=== PATIENT | female | born 1990 | race Caucasian/White ===

== ENCOUNTER 2017-11-14 12:22 | Emergency (ER) | payer OTHER ==
[~2017-11-14] VITALS: Ht 162.6 cm; Wt 89.4 kg
[~2017-11-14 12:22] MED LIST: ALBUTEROL SULF8.5 GM INH; ALBUTEROL2.5 MG/3 M INH; AZITHROMYCIN250 MG PO; BACLOFEN10 MG PO; BENTYL20 MG PO; BENZONATATE100 MG PO; BLEPHAMIDE EYE D5 ML OD; BUTALB-ACETAMI1 EAC2 PO; CEPHALEXIN500 MG PO; CIPROFLOXACIN250 MG PO; CLINDAMYCIN HC300 MG PO; DOXYCYCLINE HY100 MG PO; ESCITALOPRAM OX10 MG PO; FIORICET 50-301 EACH PO; FLEXERIL10 MG PO; FLEXERIL5 MG PO; FLONASE2 SPRAY; HYDROCODON-ACE1 EAC8 PO; HYDROCODONE-CH473 ML PO; IBUPROFEN800 MG PO; KEFLEX500 MG PO; KETOPROFEN50 MG PO; LEXAPRO10 MG PO; LORCET 5-325 M1 EACH PO; MACRODANTIN100 MG PO; NAPROSYN500 MG PO; NEURONTIN100 MG PO; NORCO 10-325 T1 EACH PO; NORCO 5-325 TA1 EACH PO; OMEPRAZOLE20 MG PO; ONDANSETRON HCL4 MG PO; PERCOCET 5-3251 EACH PO; PREDNISONE20 MG PO; PROAIR HFA8.5 GM INH; PROMETHAZI6.25 MG/5 PO; PROMETHAZINE HC25 M1 PO; SULFACETAMIDE S15 ML OD; TRAMADOL HCL50 MG PO; WELLBUTRIN XL150 MG PO; WELLBUTRIN100 MG PO; ZITHROMAX250 MG PO; ZOFRAN ODT4 MG PO; ZOFRAN ODT8 MG PO; ZOFRAN4 MG PO
[2017-11-14] MEDS ORDERED: METHYLPREDNISOLO4 MG PO (12:39)
[2017-11-14] MEDS ORDERED: PANTOPRAZOLE SO40 MG PO (15:43)
[2017-11-14] MEDS ORDERED: ZOFRAN ODT4 MG PO (15:43)
== END 2017-11-14 15:56 | disposition home or self-care (01) ==
LOC: ED 12:22
DX: F45.8 Other somatoform disorders (principal); K21.9 Gastro-esophageal reflux disease without esophagitis; F17.200 Nicotine dependence, unspecified, uncomplicated; Z88.0 Allergy status to penicillin; Z88.5 Allergy status to narcotic agent; Z88.6 Allergy status to analgesic agent; Z79.899 Other long term (current) drug therapy
CPT/HCPCS: 70491; 80053; 83690; 85025; 96374; 96375; 99284; J2405; J7030; Q9967

== ENCOUNTER 2017-12-01 09:23 | Emergency (ER) | payer OTHER ==
[~2017-12-01] VITALS: Ht 162.6 cm; Wt 89.4 kg
[~2017-12-01 09:23] MED LIST changes: +METHYLPREDNISOLO4 MG PO; +PANTOPRAZOLE SO40 MG PO
== END 2017-12-01 09:40 | disposition home or self-care (01) ==
LOC: ED 09:23
DX: S61.512A Laceration without foreign body of left wrist, initial encounter (principal); W26.8XXA Contact with other sharp object(s), not elsewhere classified, initial encounter; Y99.0 Civilian activity done for income or pay

== ENCOUNTER 2019-04-16 11:13 | Emergency (ER) | payer OTHER ==
[~2019-04-16] VITALS: Ht 162.6 cm; Wt 90.7 kg
[~2019-04-16 11:13] MED LIST changes: +BUPROPION HCL150 M2 PO; +ULTRAM50 MG PO
[2019-04-16] MEDS ORDERED: NORCO 5-325 TA1 EACH PO (11:36)
[2019-04-16] MEDS ORDERED: ALBUTEROL2.5 MG/3 M INH (11:36)
[2019-04-16] MEDS ORDERED: IPRAT-ALBUT 0.5-3 ML INH (11:36)
== END 2019-04-16 13:46 | disposition home or self-care (01) ==
LOC: ED 11:13
DX: R10.31 Right lower quadrant pain (principal); R19.7 Diarrhea, unspecified; J45.909 Unspecified asthma, uncomplicated; F17.200 Nicotine dependence, unspecified, uncomplicated; Z88.0 Allergy status to penicillin; Z88.5 Allergy status to narcotic agent; Z88.6 Allergy status to analgesic agent
CPT/HCPCS: 74177; 80053; 81001; 84703; 85025; 99284-25; J2270; J2550; J7030; Q9967

== ENCOUNTER 2019-06-25 01:07 | Emergency (ER) | payer OTHER ==
[~2019-06-25] VITALS: Ht 162.6 cm; Wt 82.5 kg
--- OUTSIDE RECORDS SUMMARY | ~2019-06-25 | XMS | Clinical Summary ---
Demographics + + + | Address | [address] | | | [place] [address] | + + + | Home Phone | | + + + | Preferred Language | Unknown | + + + | Marital Status | | + + + | Scientology Affiliation | Unknown | + + + | Race | Unknown | + + + | Ethnic Group | Unknown | + + + Author + + + | Author | [facility] (Historical as of | | | 03-11-19) | + + + | Organization | [facility] (Historical as of | | | 03-11-19) | + + + | Address | Unknown | + + + | Phone | Unavailable | + + + Support + + +---------+ + | Name | Relationship | Address | Phone | + + +---------+ + | Voice,Mail | ECON | Unknown | | + + +---------+ + | Dea Zendejas | MAHESH | Unknown | | + + +---------+ + Care Team Providers + +------+ + | Care Boiler Tester Name | Role | Phone | + +------+ + | Dixon Morris | PP | | + +------+ + Allergies + + + + + + | Active Allergy | Reactions | Severity | Noted | Comments | | | | | Date | | + + + + + + | Amoxicillin | Hives | High | 07/12/20 | | | | | | 13 | | + + + + + + | Codeine | Tachycardia | Medium | 03/13/20 | | | | | | 18 | | + + + + + + | Ketorolac | Other (See Comments) | Medium | 03/13/20 | Pt states she | | | | | 18 | freaks out and wants | | | | | | to pull her hair | | | | | | out | + + + + + + Current Medications + + +-------+---------+------+------+-------+ | Prescription | Sig. | Disp. | Refills | Star | End | Statu | | | | | | t | Date | s | | | | | | Date | | | + + +-------+---------+------+------+-------+ | | Take 1 tablet by | | | | | Activ | | oxycodone-acetaminop | mouth every 8 | | | | | e | | hen (PERCOCET) | (eight) hours as | | | | | | | 10-325 MG per tablet | needed. | | | | | | + + +-------+---------+------+------+-------+ | cyclobenzaprine | Take 5 mg by mouth | | | | | Activ | | (FLEXERIL) 5 MG | as needed. | | | | | e | | tablet | | | | | | | + + +-------+---------+------+------+-------+ | promethazine | Take 25 mg by mouth | | | | | Activ | | (PHENERGAN) 25 MG | every 6 (six) hours | | | | | e | | tablet | as needed. | | | | | | + + +-------+---------+------+------+-------+ Active Problems Not on file Social History + + + +--------+------+ | Tobacco Use | Types | Packs/Day | Years | Date | | | | | Used | | + + + +--------+------+ | Current Every Day | Cigarettes | 0.8 | 5 | | | Smoker | | | | | + + + +--------+------+ + +------+---+---+ | Smokeless Tobacco: | Chew | | | | Current User | | | | + +------+---+---+ + + | Comments: once in awhile when i dont have cigarettes | + + + + +---------+ + | Alcohol Use | Drinks/We | oz/Week | Comments | | | ek | | | + + +---------+ + | No | | | every now and then | + + +---------+ + + + + | Sex Assigned at | Date Recorded | | | | + + + | Not on file | | + + + Last Filed Vital Signs + + + + | Vital Sign | Reading | Time Taken | + + + + | Blood Pressure | 108/62 | 03/13/2018 6:54 PM PDT | + + + + | Pulse | 93 | 03/13/2018 6:54 PM PDT | + + + + | Temperature | 37 C (98.6 F) | 03/13/2018 6:54 PM PDT | + + + + | Respiratory Rate | 16 | 03/13/2018 6:54 PM PDT | + + + + | Oxygen Saturation | 97% | 03/13/2018 6:54 PM PDT | + + + + | Inhaled Oxygen | - | - | | Concentration | | | + + + + | Weight | 84.7 kg (186 lb 11.2 | 03/13/2018 6:54 PM PDT | | | oz) | | + + + + | Height | 165.1 cm (5' 5") | 03/13/2018 6:54 PM PDT | + + + + | Body Mass Index | 31.07 | 03/13/2018 6:54 PM PDT | + + + + Plan of Treatment + + + + + | Health Maintenance | Due Date | Last Done | Comments | + + + + + | Vaccine: | | | | | Dtap/Tdap/Td (1 - | 0 | | | | Tdap) | | | | + + + + + | Vaccine: | | | | | Pneumococcal 19-64 | 0 | | | | (PPSV23 only) Medium | | | | | Risk (1 of 1 - | | | | | PPSV23) | | | | + + + + + | Cervical Cancer | | | | | Screening (Pap) | 2 | | | + + + + + | Vaccine: Influenza | | | | | (#1) | 9 | | | + + + + + Results Not on filefrom Last 3 Months Insurance + +--------+ +------+-------+ + | Payer | Benefi | Subscriber | Type | Phone | Address | | | t Plan | ID | | | | | | / | | | | | | | Group | | | | | + +--------+ +------+-------+ + | MEDICAID | [place] | [id number] | | | [address] | | | N | | | | [place] | | | [place] | | | | [address] | | | [employer] | | | | | + +--------+ +------+-------+ + + +--------+ +--------+ + + | Guarantor Name | Accoun | Relation to | Date | Phone | Billing Address | | | t Type | Patient | of | | | | | | | | | | + +--------+ +--------+ + + | YON WALTON | Person | Self [birth year] Home: | [address] | | | al/Fam | | 1990 | [phone] [place] [address] | | | wilda | | | [phone] | | + +--------+ +--------+ + +
--- OUTSIDE RECORDS SUMMARY | ~2019-06-25 | XMS | Encounter Summary ---
Demographics + + + | Address | [address] | | | [place] [address] | + + + | Home Phone | | + + + | Preferred Language | Unknown | + + + | Marital Status | | + + + | Mormonism Affiliation | Unknown | + + + | Race | Unknown | + + + | Ethnic Group | Unknown | + + + Author + + + | Author | [facility] | | | and [place] | + + + | Organization | [facility] | | | and [place] | [...] Team Providers + +------+ + | Care Laundry Agent Name | Role | Phone | + +------+ + PCP | Unavailable | + +------+ + Encounter Details +--------+ + + + + | Date | Type | Department | Care Team | Description | +--------+ + + + + | 07/06/ | Hospital | [facility] | Conversion | Headache | | 2012 | Encounter | CONVERSION [address] | Transaction, | | | | | [address] | Provider Unknown | | | | | [place] | | | | | | [address] | | | | | | [phone] | | | +--------+ + + + [...]
--- OUTSIDE RECORDS SUMMARY | ~2019-06-25 | XMS | Encounter Summary ---
Demographics + + + | Address | [address] | | | [place] [address] | + + + | Home Phone | | + + + | Preferred Language | Unknown | + + + | Marital Status | | + + + | Scientologist Affiliation | Unknown | + + + | Race | Unknown | + + + | Ethnic Group | Unknown | + + + Author + + + | Author | [facility] | | | and [place] | + + + | Organization | [facility] | | | and [place] [...] Team Providers + +------+ + | Care Flight Simulator Teacher Name | Role | Phone | + +------+ + PCP | Unavailable | + +------+ + Encounter Details +--------+ + + + + | Date | Type | Department | Care Team | Description | +--------+ + + + + | 07/06/ | Hospital | [facility] | Conversion | Headache | | 2012 | Encounter | CONVERSION [address] | Transaction, | | | | | [address] | Provider Unknown | | | | | [place] | | | | | | [address] | | | | | | [phone] | | | +--------+ + + + [...]
--- OUTSIDE RECORDS SUMMARY | ~2019-06-25 | XMS | Encounter Summary ---
Demographics + + + | Address | [address] | | | [place] [address] | + + + | Home Phone | | + + + | Preferred Language | Unknown | + + + | Marital Status | | + + + | Hoahaoism Affiliation | Unknown | + + + | Race | Unknown | + + + | Ethnic Group | Unknown | + + + Author + + + | Author | [facility] | | | and [place] | + + + | Organization | [facility] | | | and [place] [...] Team Providers + +------+ + | Care Face And Fill Packer Name | Role | Phone | + [...] Provider Unknown | | | | | [place], [place] | | | | | | [phone] | (Fax) | | | | | [...]
--- OUTSIDE RECORDS SUMMARY | ~2019-06-25 | XMS | Encounter Summary ---
Demographics + + + | Address | [address] | | | [place] [address] | + + + | Home Phone | | + + + | Preferred Language | Unknown | + + + | Marital Status | | + + + | Moravian Affiliation | Unknown | + + + | Race | Unknown | + + + | Ethnic Group | Unknown | + + + Author + + + | Author | [facility] | | | and [place] | + + + | Organization | [facility] | | | and [...] Team Providers + +------+ + | Care Roller Man Name | Role | Phone | + +------+ + | Dixon Morris PA-C | PCP | | + +------+ + Encounter Details +--------+ + + + + | Date | Type | Department | Care Team | Description | +--------+ + + + + | 03/13/ | Orders Only | [facility] | [place], | | | 2018 | | GASTROENTEROLOGY | [address] | | | | | [address] | [place] | | | | | [place], [place] | [address] [place], [place] | | | | | [address] | [address] | | | | | [phone] | | | +--------+ + + + [...]
--- OUTSIDE RECORDS SUMMARY | ~2019-06-25 | XMS | Clinical Summary ---
Demographics + + + | Address | [address] | | | [place] [address] | + + + | Home Phone | | + + + | Preferred Language | Unknown | + + + | Marital Status | | + + + | Yazidism Affiliation | Unknown | + + + | Race | Unknown | + + + | Ethnic Group | Unknown | + + + Author + + + | Author | [facility] | | | and [place] | + + + | Organization | [facility] | | | and [...] Team Providers + +------+ + | Care Linoleum Layer Name | Role | Phone | + [...]
--- OUTSIDE RECORDS SUMMARY | ~2019-06-25 | XMS | Encounter Summary ---
Demographics + + + | Address | [address] | | | [place] [address] | + + + | Home Phone | | + + + | Preferred Language | Unknown | + + + | Marital Status | | + + + | Episcopalian Affiliation | Unknown | + + + | Race | Unknown | + + + | Ethnic Group | Unknown | + + + Author + + + | Author | [facility] | | | and [place] | + + + | Organization | [facility] | | | and [place] | [...] Team Providers + +------+ + | Care Cloth Finishing Range Back Tender Name | Role | Phone | + +------+ + PCP | Unavailable | + +------+ + Encounter Details +--------+ + + + + | Date | Type | Department | Care Team | Description | +--------+ + + + + | 07/25/ | Hospital | [facility] | Conversion | Headache | | 2012 | Encounter [facility] | Transaction, | | | | | CLINICAL DECISION | Provider Unknown | | | | | [address] [facility] | [phone] | | | | | [place] | | | | | | [address] | Ulysses Sanabria MD [address] | | | | | [phone] | [address] | | | | | | [place] | | | | | | [place] [address] | | | | | | [phone] | | | | | | | [...] Note by Farida Mcmillan RN at 07/25/13 8974 Author: Farida Mcmillan RN Service: (none) Author Type: Registered Nurse Filed: 07/25/131819 Date of Service: 07/25/131818 Status: Signed Bit Bender: Farida Mcmillan RN (Registered Nurse) Pt meets [...] 07/25/131821 Date of Service: 07/25/131699 Status: Signed Bit Bender: Farida Mcmillan RN (Registered Nurse) Nuclear Medicine [...] | | The possibility of "sound alike" bit bender errors, addition | | | and/or deletions may occur. If there is any question about this | | | report please contact the author of the report. Electronically | | | signed by HAYILE So on 07/25/2013 3:07 PM | | [...] The possibility of "sound alike" | | bit bender errors, addition and/or deletions may occur. If [...] system. The possibility of "sound a like" bit bender errors, addition and/or deletions may occur. If [...] | Testing performed at | | | [facility];[address] [place] [address] GRAM STAIN | | | NO WBC'S SEEN | | | NO ORGANISMS SEEN | | | Testing performed at [facility];[address] [place] [address] | | | CULTURE NO GROWTH 3 DAYS | | | Testing performed | | | at [facility], [address] [place] [address] REPORT STATUS | | | 07/29/2013 FINAL [...] EXTERNAL LAB | | Testing performed at [facility];[address];[place] [address] APPEARANCE | | | CLEAR Testing performed at | | | [facility];[address];[place] [address] Tube Number, CSF | | | 3 Testing performed at [facility];[address];[place] [address] CSF RBC | | | 84 High Testing performed at [facility];[address] | [address];[place] [address] CSF WBC | | | 3 Testing performed at [facility];[address];[place], [place] | | | [address] | | + + + + +---------+ [...] | EXTERNAL LAB | | performed at [facility];[address] [place] [address];[place] [address] | | + + + + +---------+ [...] EXTERNAL LAB | | Testing performed at [facility];[address] [place] [address] [address] | | + + + + +---------+ [...]
--- OUTSIDE RECORDS SUMMARY | ~2019-06-25 | XMS | Encounter Summary ---
Demographics + + + | Address | [address] | | | [place] [address] | + + + | Home Phone | | + + + | Preferred Language | Unknown | + + + | Marital Status | | + + + | Congregational Affiliation | Unknown | + + + | Race | Unknown | + + + | Ethnic Group | Unknown | + + + Author + + + | Author | [facility] | | | and [place] | + + + | Organization | [facility] | | | and [place] [...] Team Providers + +------+ + | Care Deburrer Machine Name | Role | Phone | + +------+ + | Dixon Morris PA-C | PCP | | + +------+ + Encounter Details +--------+ + + + + | Date | Type | Department | Care Team | Description | +--------+ + + + + | 03/13/ | Orders Only | [facility] | [place], | | | 2018 | | GASTROENTEROLOGY | [address] | | | | | [address] | [address] | | | | | [place], [place] | [address] [place], [place] | | | | | [address] | [address] | | | | | [phone] | | | +--------+ + + + [...]
--- OUTSIDE RECORDS SUMMARY | ~2019-06-25 | XMS | Encounter Summary ---
Demographics + + + | Address | [address] | | | [place] [address] | + + + | Home Phone | | + + + | Preferred Language | Unknown | + + + | Marital Status | | + + + | Anabaptism Affiliation | Unknown | + + + | Race | Unknown | + + + | Ethnic Group | Unknown | + + + Author + + + | Author | [facility] | | | and [place] | + + + | Organization | [facility] | | | and [place] [...] Team Providers + +------+ + | Care Aquatic Centre Manager Name | Role | Phone | [...] Provider Unknown | | | | | [place], [place] | | | | | | [address] | (Fax) | | | | | [...]
--- OUTSIDE RECORDS SUMMARY | ~2019-06-25 | XMS | Encounter Summary ---
Demographics + + + | Address | [address] | | | [place] [address] | + + + | Home Phone | | + + + | Preferred Language | Unknown | + + + | Marital Status | | + + + | Yarsanism Affiliation | Unknown | + + + | Race | Unknown | + + + | Ethnic Group | Unknown | + + + Author + + + | Author | [facility] | | | and [place] | + + + | Organization | [facility] | | | and [place] [...] Team Providers + +------+ + | Care Transportation Refrigeration Technician Name | Role | Phone | + +------+ + PCP | Unavailable | + +------+ + Encounter Details +--------+ + + + + | Date | Type | Department | Care Team | Description | +--------+ + + + + | 07/06/ | Hospital | [facility] | Conversion | Headache | | 2012 | Encounter | [address] | Transaction, | | | | | [address] | Provider Unknown | | | | | [place] | | | | | | [address] | | | | | | [phone] | | | +--------+ + + + [...]
--- OUTSIDE RECORDS SUMMARY | ~2019-06-25 | XMS | Encounter Summary ---
Demographics + + + | Address | [address] | | | [place] [address] | + + + | Home Phone | | + + + | Preferred Language | Unknown | + + + | Marital Status | | + + + | Voodoo Affiliation | Unknown | + + + | Race | Unknown | + + + | Ethnic Group | Unknown | + + + Author + + + | Author | [facility] | | | and [place] | + + + | Organization | [facility] | | | and [place] | [...] Team Providers + +------+ + | Care Head Silverman Name | Role | Phone | + +------+ + PCP | Unavailable | + +------+ + Encounter Details +--------+ + + + + | Date | Type | Department | Care Team | Description | +--------+ + + + + | 07/25/ | Hospital | [facility] | Conversion | Headache | | 2012 | Encounter | [facility] | Transaction, | | | | | CLINICAL DECISION | Provider Unknown | | | | | [address] [facility] | [phone] | | | | | [place] | | | | | | [address] | Ulysses Sanabria MD [address] | | | | | [phone] | [address] | | | | | | [place] | | | | | | [place] [address] | | | | | | [phone] | | | | | | | [...] Note by Farida Mcmillan RN at 07/25/13 9170 Author: Farida Mcmillan RN Service: (none) Author Type: Registered Nurse Filed: 07/25/131819 Date of Service: 07/25/131818 Status: Signed Analytical Technician: Farida Mcmillan RN (Registered Nurse) Pt [...] 07/25/131821 Date of Service: 07/25/131699 Status: Signed Analytical Technician: Farida Mcmillan RN (Registered Nurse) Nuclear [...] | | The possibility of "sound alike" pants presser errors, addition | | | and/or deletions [...] The possibility of "sound alike" | | pants presser errors, addition and/or deletions may occur. If [...] system. The possibility of "sound a like" pants presser errors, addition and/or deletions may occur. If [...] | Testing performed at | | | [facility];[address] [place] [address] GRAM STAIN | | | NO WBC'S SEEN | | | NO ORGANISMS SEEN | | | Testing performed at [facility];[address] [place] [address] | | | CULTURE NO GROWTH 3 DAYS | | | Testing performed | | | at [facility], [address] [place] [address] REPORT STATUS | | | 07/29/2013 FINAL [...] EXTERNAL LAB | | Testing performed at [facility];[address];[place] [address] APPEARANCE | | | CLEAR Testing performed at | | | [facility];[address];[place] [address] Tube Number, CSF | | | 3 Testing performed at [facility];[address] | [address];[place] [address] CSF RBC | | | 84 High Testing performed at [facility];[address] | [address];[place] [address] CSF WBC | | | 3 Testing performed at [facility];[address];[place], [place] | | | [address] | | + + + + +---------+ [...] | EXTERNAL LAB | | performed at [facility];[address] [place] [address];[place] [address] | | + + + + +---------+ [...] EXTERNAL LAB | | Testing performed at [facility];[address] [place] [address];[place] [address] | | + + + + +---------+ [...]
--- OUTSIDE RECORDS SUMMARY | ~2019-06-25 | XMS | Clinical Summary ---
Demographics + + + | Address | [address] | | | [place] [address] | + + + | Home Phone | | + + + | Preferred Language | Unknown | + + + | Marital Status | | + + + | Quaker Affiliation | Unknown | + + + | Race | Unknown | + + + | Ethnic Group | Unknown | + + + Author + + + | Author | [facility] | | | and [place] | + + + | Organization | [facility] | | | and [place] [...] Team Providers + +------+ + | Care Drapery Cutter Machine Name | Role | Phone | [...]
--- OUTSIDE RECORDS SUMMARY | ~2019-06-25 | XMS | Encounter Summary ---
Demographics + + + | Address | [address] | | | [place] [address] | + + + | Home Phone | | + + + | Preferred Language | Unknown | + + + | Marital Status | | + + + | Anabaptism Affiliation | Unknown | + + + | Race | Unknown | + + + | Ethnic Group | Unknown | + + + Author + + + | Author | [facility] | | | and [place] | + + + | Organization | [facility] | | | and [place] [...] Team Providers + +------+ + | Care Senior Javascript Developer Name | Role | Phone | + [...] Provider Unknown | | | | | [place], [place] | | | | | | [address] | (Fax) | | | | | [...]
--- OUTSIDE RECORDS SUMMARY | ~2019-06-25 | XMS | Clinical Summary ---
Demographics + + + | Address | [address] | | | [place] [address] | + + + | Home Phone | | + + + | Preferred Language | Unknown | + + + | Marital Status | | + + + | Temple Affiliation | Unknown | + + + | Race | Unknown | + + + | Ethnic Group | Unknown | + + + Author + + + | Author | [facility] (Historical as of | | | 03-11-19) | + + + | Organization | [facility] (Historical as of | | | 03-11-19) [...] Team Providers + +------+ + | Care Machine Made Shoe Unit Worker Name | Role | Phone | + [...] +------+-------+ + | MEDICAID | [place] | [id number] | | | [address] | | | [address] | | | | [place] | | | [place] | | | | [address] | | | EMERGENCY DEPARTMENT COORDINATOR | | | | | + +--------+ [...] | Self [birth year] | Home: | [address] | | | al/Fam | | 1990 | [phone] | [place] [address] | | | [place] | | | [phone] | | + +--------+ +--------+ + +
--- OUTSIDE RECORDS SUMMARY | ~2019-06-25 | XMS | Encounter Summary ---
Demographics + + + | Address | [address] | | | [place] [address] | + + + | Home Phone | | + + + | Preferred Language | Unknown | + + + | Marital Status | | + + + | Yarsani Affiliation | Unknown | + + + | Race | Unknown | + + + | Ethnic Group | Unknown | + + + Author + + + | Author | [facility] | | | and [place] | + + + | Organization | [facility] | | [...] Team Providers + +------+ + | Care Jewelry Enameler Name | Role | Phone | + [...] [place] | | | | | | [address] | | | | | | [phone] | | | +--------+ + + + [...]
--- OUTSIDE RECORDS SUMMARY | ~2019-06-25 | XMS | Encounter Summary ---
Demographics + + + | Address | [address] | | | [place] [address] | + + + | Home Phone [...] | Author | [facility] | | | and [place] | + + + | Organization | [facility] | | | and [place] [...] Team Providers + +------+ + | Care Formulation Technician Name | Role | Phone | [...] Provider Unknown | | | | | [place], [place] | | | | | | [address] | (Fax) | | | | | [...]
[~2019-06-25 01:07] MED LIST changes: +IPRAT-ALBUT 0.5-3 ML INH
--- NOTE | 2019-06-26 12:43 | EKG ---
[facility] [address] [place] [address] Signed Normal sinus rhythm Normal ECG When compared with ECG of 16-MAY-2018 21:14, No significant change was found Confirmed by FELIZ ARZATE MD ([id number]) on 06/26/2019 12:43:27 PM Electronically Signed By: FELIZ ARZATE MD 06/26/19 1243 PATIENT NAME: YON WALTON Electrocardiogram DATE OF : [birth year] PHYSICIAN: FELIZ ARZATE MD REPORT #: [id number] REPORT IS CONFIDENTIAL AND NOT TO BE RELEASED WITHOUT AUTHORIZATION
== END 2019-06-25 04:24 | disposition home or self-care (01) ==
LOC: ED 01:07
DX: R07.2 Precordial pain (principal); F17.200 Nicotine dependence, unspecified, uncomplicated; Z88.5 Allergy status to narcotic agent; Z88.0 Allergy status to penicillin; Z88.6 Allergy status to analgesic agent
CPT/HCPCS: 71045; 80053; 81001; 83735; 84484; 85025; 93005; 93010; 99285-25; 99406; J7030

== ENCOUNTER 2019-07-01 22:14 | Emergency (ER) | payer OTHER ==
[~2019-07-01] VITALS: Ht 162.6 cm; Wt 82.5 kg
--- OUTSIDE RECORDS SUMMARY | ~2019-07-01 | XMS | Encounter Summary ---
Demographics + + + | Address | [address] | | | [place] [address] | + + + | Home Phone | | + + + | Preferred Language | Unknown | + + + | Marital Status | | + + + | Orthodox Affiliation | Unknown | + + + | Race | Unknown | + + + | Ethnic Group | Unknown | + + + Author + + + | Author | [facility] | | | and [place] | + + + | Organization | [facility] | | | and [place] [...] Team Providers + +------+ + | Care Cold Patcher Name | Role | Phone | + +------+ + | Dixon Morris PA-C | PCP | | + +------+ + Encounter Details +--------+ + + + + | Date | Type | Department | Care Team | Description | +--------+ + + + + | 03/13/ | Orders Only | [facility] | [place], | | | 2018 | | GASTROENTEROLOGY | [address] | | | | | [address] | NEELAM [address]O | | | | | [place], [place] | [address] [place], [place] | | | | | [address] | [address] | | | | | [phone] | | | +--------+ + + + + Social History + +-------+ +--------+------+ | Tobacco Use | Types | Packs/Day | Years | Date | | | | | Used | | + +-------+ +--------+------+ | Current Every Day | | 0.8 | | | | Smoker | | | | | + +-------+ +--------+------+ + + | Comments: once in awhile when i dont have cigarettes | + + + + + | Sex Assigned [...]
--- OUTSIDE RECORDS SUMMARY | ~2019-07-01 | XMS | Encounter Summary ---
Demographics + + + | Address | [address] | | | [place] [address] | + + + | Home Phone | | + + + | Preferred Language | Unknown | + + + | Marital Status | | + + + | Taoism Affiliation | Unknown | + + + | Race | Unknown | + + + | Ethnic Group | Unknown | + + + Author + + + | Author | [facility] | | | and [place] | + + + | Organization | [facility] | | | and [place] [...] Team Providers + +------+ + | Care Blanket Inspector Name | Role | Phone | + +------+ + | Dixon Morris PA-C | PCP | | + +------+ + Encounter Details +--------+ + + + + | Date | Type | Department | Care Team | Description | +--------+ + + + + | 07/12/ | Orders Only | [facility] | Conversion | | | 2012 | | CONVERSION [address] | Transaction, | | | | [address] | Provider Unknown | | | | | [place], [place] | | | | | | [phone] | (Fax) | | | | | [...]
--- OUTSIDE RECORDS SUMMARY | ~2019-07-01 | XMS | Encounter Summary ---
Demographics + + + | Address | [address] | | | [place] [address] | + + + | Home Phone | | + + + | Preferred Language | Unknown | + + + | Marital Status | | + + + | Scientology Affiliation | Unknown | + + + | Race | Unknown | + + + | Ethnic Group | Unknown | + + + Author + + + | Author | [facility] | | | and [place] | + + + | Organization | [facility] | | | and [place] [...] Team Providers + +------+ + | Care Silver Solderer Name | Role | Phone | + +------+ + PCP | Unavailable | + +------+ + Encounter Details +--------+ + + + + | Date | Type | Department | Care Team | Description | +--------+ + + + + | 07/25/ | Hospital | [facility] | Conversion | Headache | | 2012 | Encounter | [facility] | Transaction, | | | | | CLINICAL DECISION | Provider Unknown | | | | | [address] [facility] | [phone] | | | | | [place] | | | | | | [address] | Ulysses Sanabria MD [address] | | | | | [phone] | [address] | | | | | | [place] | | | | | | [place] [address] | | | | | | [phone] | | | | | | | [...] + + documented as of this encounter Medications at Time of Discharge + + + +---------+ + + | Medication | Sig | Dispensed | Refills | Start | End Date | | | | | | Date | | + + + +---------+ + + | cyclobenzaprine | Take 5 mg by mouth | | 0 | 07/25/20 | | | (FLEXERIL) 5 MG | as needed. | | | 13 | | | tablet | | | | | | + + + +---------+ + + | | Take 1 tablet by | | 0 | 07/12/20 | | | oxyCODONE-acetaminop | mouth every 8 | | | 13 | | | hen (PERCOCET) | (eight) hours as | | | | | | 10-325 mg per tablet | needed. | | | | | + + + +---------+ + + | promethazine | Take 25 mg by mouth | | 0 | 07/25/20 | | | (PHENERGAN) 25 mg | every 6 (six) hours | | | 13 | | | tablet | as needed. | | | | | + + + +---------+ + + documented as of this encounter Progress Notes Conversion Transaction, Provider Unknown - 07/25/2013 6:19 PM PSTFormatting of this note m ight be different from the original. Nurse Progress Note by Farida Mcmillan RN at 07/25/13 8530 Author: Farida Mcmillan RN Service: (none) Author Type: Registered Nurse Filed: 07/25/131819 Date of Service: 07/25/131818 Status: Signed Garbage Worker: Farida Mcmillan RN (Registered Nurse) Pt meets discharge criteria and was given verbal and written discharge instructions. Pt st ates understanding with no further questions at this time. IV dc'd cannula intact. Pt will be escorted by staff to front entrance onver oscar Transaction, Provider Unknown - 07/25/2013 5:00 PM PST Nurse Progress Note by Farida Mcmillan RN at 07/25/131699 Author: Farida Mcmillan RN Service: (none) Author Type: Registered Nurse Filed: 07/25/131821 Date of Service: 07/25/131699 Status: Signed Garbage Worker: Farida Mcmillan RN (Registered Nurse) Nuclear Medicine contacted to get in touch with Deshawn STALLINGS regarding pt headache and pa in medication orders. Will continue to monitor pain status and darken room, decreasing stim ulus. Pt lying flat drinking adequate fluids at this time. Will await further orders docume nted in this encounter Plan of Treatment Not on filedocumented as of this encounter Procedures + +--------+ + + + | Procedure Name | Priori | Date/Time | Associated Diagnosis | Comments | | | ty | | | | + +--------+ + + + | FL LUMBAR PUNCTURE | Routin | 07/25/2013 | | Results for this | | DIAGNOSTIC | e | 2:40 PM | | procedure are in the | | | | PST | | results section. | + +--------+ + + + | CULTURE, CSF, SMEAR | Timed | 07/25/2013 | | Results for this | | | | 2:36 PM | | procedure are in the | | | | PST | | results section. | + +--------+ + + + | CELL COUNT WITH | Routin | 07/25/2013 | | Results for this | | DIFFERENTIAL, CSF | e | 2:36 PM | | procedure are in the | | | | PST | | results section. | + +--------+ + + + | PROTEIN, CSF | Routin | 07/25/2013 | | Results for this | | | e | 2:36 PM | | procedure are in the | | | | PST | | results section. | + +--------+ + + + | GLUCOSE, CSF | Routin | 07/25/2013 | | Results for this | | | e | 2:36 PM | | procedure are in the | | | | PST | | results section. | + +--------+ + + + documented in this encounter Results FL Lumbar Puncture Diagnostic (07/25/2013 2:40 PM PST) + + | Specimen | + + | | + + + + + | Narrative | Performed At | + + + | PROCEDURE Diagnostic lumbar puncture under fluoroscopic guidance. | | | HISTORY Headache, evaluate for pseudotumor cerebri. PRE | | | PROCEDURAL LABORATORY DATA Labs performed: CBC indicates platelet | | | count of 190,000, INR of 1.1, and PTT of 27 seconds. DIAGNOSTIC | | | IMAGING DATA MRI of the brain without contrast performed on June | | | 2012, indicates a normal study. * * ALLERGIES* * 1. | | | AMOXICILLIN MEDICATION ADMINISTERED: None DESCRIPTION OF | | | PROCEDURE I met this patient in the radiology department The | | | patient was awake, alert, oriented times 3, and in no acute distress. | | | We had a discussion about the procedure, the risks involved, and the | | | alternatives. The patient verbalized understanding of this and | | | their desire was to proceed with the procedure. Therefore, written | | | informed consent was obtained. A preprocedure pause timeout was | | | performed verifying the procedure, site, and the patient; all members | | | of the team are in agreement. The patient placed in the prone | | | position on the fluoroscopy table. A suitable site for lumbar puncture | | | at level L4-L5 was selected. The skin of the back was prepped with | | | Betadine circular scrubs and draped. Local anesthesia was obtained | | | with lidocaine 1% with bicarbonate, with good effect. Under | | | intermittent fluoroscopic observation a 20 gauge spinal needle was | | | gradually advanced. There was return of clear colorless cerebrospinal | | | fluid, approximately 10 mL was obtained and distributed into 4 | | | sterile vials. This was sent to the laboratory. When 10 mL was | | | obtained, the procedure was terminated, needle was withdrawn, and a | | | Band-Aid dressing was applied. The patient tolerated the procedure | | | well. No procedural complications were encountered. Total | | | fluoroscopy time: 0.3 minutes Total fluoroscopy dose: 2.3 mGy | | | Opening pressure: 8 cmH20 IMPRESSION Successful Diagnostic lumbar | | | puncture under fluoroscopy. No procedural complications encountered. | | | This report has been prepared with a voice recognition system. | | | The possibility of "sound alike" process controls technician errors, addition | | | and/or deletions may occur. If there is any question about this | | | report please contact the author of the report. Electronically | | | signed by HAYLIE So on 07/25/2013 3:07 PM | | + + + + + | Procedure Note | + + | Charles, Rad Conversion - 03/17/2019 8:07 PM PDT PROCEDUREDiagnostic lumbar puncture | | under fluoroscopic guidance. HISTORYHeadache, evaluate for pseudotumor cerebri. PRE | | PROCEDURAL LABORATORY DATALabs performed: CBC indicates platelet count of 190,000, INR | | of 1.1, and PTT of 27 seconds. DIAGNOSTIC IMAGING DATAMRI of the brain without contrast | | performed on June 28, 2013, indicates a normal study. * * ALLERGIES* *1. AMOXICILLIN | | MEDICATION ADMINISTERED:None DESCRIPTION OF PROCEDUREI met this patient in the | | radiology department The patient was awake, alert, oriented times 3, and in no acute | | distress. We had a discussion about the procedure, the risks involved, and the | | alternatives. The patient verbalized understanding of this and their desire was to | | proceed with the procedure. Therefore, written informed consent was obtained. A | | preprocedure pause timeout was performed verifying the procedure, site, and the patient; | | all members of the team are in agreement. The patient placed in the prone position on | | the fluoroscopy table. A suitable site for lumbar puncture at level L4-L5 was selected. | | The skin of the back was prepped with Betadine circular scrubs and draped. Local | | anesthesia was obtained with lidocaine 1% with bicarbonate, with good effect. Under | | intermittent fluoroscopic observation a 20 gauge spinal needle was gradually advanced. | | There was return of clear colorless cerebrospinal fluid, approximately 10 mL was | | obtained and distributed into 4 sterile vials. This was sent to the laboratory. When 10 | | mL was obtained, the procedure was terminated, needle was withdrawn, and a Band-Aid | | dressing was applied. The patient tolerated the procedure well. No procedural | | complications were encountered. Total fluoroscopy time: 0.3 minutes Total fluoroscopy | | dose: 2.3 mGy Opening pressure: 8 cmH20 IMPRESSIONSuccessful Diagnostic lumbar puncture | | under fluoroscopy. No procedural complications encountered. This report has been | | prepared with a voice recognition system. The possibility of "sound alike" | | process controls technician errors, addition and/or deletions may occur. If there is any question | | about this report please contact the author of the report. | | with bicarbonate, with good effect. Under intermittent fluoroscopic observation a 20 gauge spinal needle was gradually advanced. There was return of clear colorless cerebrospinal flu id, approximately 10 mL was | |obtained and distributed into 4 sterile | | vials. This was sent to the laboratory. When 10 mL was obtained, the procedure was termina darryl, needle was withdrawn, and a Band-Aid dressing was applied. | | | |The patient tolerated the procedure well. No procedural complications were encountered. | | | |Total fluoroscopy time: 0.3 minutes | | | |Total fluoroscopy dose: 2.3 mGy | | | |Opening pressure: 8 cmH20 | | | |IMPRESSION | |Successful Diagnostic lumbar puncture under fluoroscopy. No procedural complications encoun tered. | | | | | |This report has been prepared with a voice recognition system. The possibility of "sound a like" process controls technician errors, addition and/or deletions may occur. If there is any question a bout this report please contact the author of the report. | | | | | + + Culture, CSF, Smear (07/25/2013 2:36 PM PST) + + | Specimen | + + | Cerebrospinal fluid | | sample (specimen) | + + + + + | Narrative | Performed At | + + + | Specimen Description CEREBROSPINAL FLUID | EXTERNAL LAB | | Testing performed at | | | [facility];[address] [place] [address] GRAM STAIN | | | NO WBC'S SEEN | | | NO ORGANISMS SEEN | | | Testing performed at [facility];[address] [place] [address] | | | CULTURE NO GROWTH 3 DAYS | | | Testing performed | | | at [facility], [address] [place] [address] REPORT STATUS | | | 07/29/2013 FINAL | | + + + + +---------+ + + | Performing | Address | City/State/Zipcode | Phone Number | | Organization | | | | + +---------+ + + | EXTERNAL LAB | | | | + +---------+ + + Cell Count with Differential, CSF (07/25/2013 2:36 PM PST) + + | Specimen | + + | Cerebrospinal fluid | | sample (specimen) | + + + + + | Narrative | Performed At | + + + | COLOR COLORLESS | EXTERNAL LAB | | Testing performed at [facility];[address];[place] [address] APPEARANCE | | | CLEAR Testing performed at | | | [facility];[address];[place] [address] Tube Number, CSF | | | 3 Testing performed at [facility];[address];[place] [address] CSF RBC | | | 84 High Testing performed at [facility];[address];[place] [address] CSF WBC | | | 3 Testing performed at [facility];[address];[place], [place] | | | [address] | | + + + + +---------+ + + | Performing | Address | City/State/Zipcode | Phone Number | | Organization | | | | + +---------+ + + | EXTERNAL LAB | | | | + +---------+ + + Protein, CSF (07/25/2013 2:36 PM PST) + + | Specimen | + + | Cerebrospinal fluid | | sample (specimen) | + + + + + | Narrative | Performed At | + + + | CSF TOTAL PROTEIN 26 Testing | EXTERNAL LAB | | performed at [facility];[address] [place] [address];[place] [address] | | + + + + +---------+ + + | Performing | Address | City/State/Zipcode | Phone Number | | Organization | | | | + +---------+ + + | EXTERNAL LAB | | | | + +---------+ + + Glucose, CSF (07/25/2013 2:36 PM PST) + + | Specimen | + + | Cerebrospinal fluid | | sample (specimen) | + + + + + | Narrative | Performed At | + + + | CSF GLUCOSE 49 | EXTERNAL LAB | | Testing performed at [facility];[address] [place] [address];[place] [address] | | + + + + +---------+ + + | Performing | Address | City/State/Zipcode | Phone Number | | Organization | | | | + +---------+ + + | EXTERNAL LAB | | | | + +---------+ + + documented in this encounter Visit Diagnoses + + | Diagnosis | + + | Headache(784.0) Headache | + + documented in this encounter
--- OUTSIDE RECORDS SUMMARY | ~2019-07-01 | XMS | Encounter Summary ---
Demographics + + + | Address | [address] | | | [place] [address] | + + + | Home Phone | | + + + | Preferred Language | Unknown | + + + | Marital Status | | + + + | Jain Affiliation | Unknown | + + + | Race | Unknown | + + + | Ethnic Group | Unknown | + + + Author + + + | Author | [facility] | | | and [place] | + + + | Organization | [facility] | | | and [...] Team Providers + +------+ + | Care Emergency Care Attendant Name | Role | Phone | + [...] Provider Unknown | | | | | [place], [place] | | | | | | [phone] | (Fax) | | | | | [...]
--- OUTSIDE RECORDS SUMMARY | ~2019-07-01 | XMS | Clinical Summary ---
Demographics + + + | Address | [address] | | | [place] [address] | + + + | Home Phone | | + + + | Preferred Language | Unknown | + + + | Marital Status | | + + + | Yazidi Affiliation | Unknown | + + + | Race | Unknown | + + + | Ethnic Group | Unknown | + + + Author + + + | Author | [facility] (Historical as of | | | 03-11-19) | + + + | Organization | [facility] (Historical as of | | | 03-11-19) [...] Team Providers + +------+ + | Care Cobol Engineer Name | Role | Phone | + [...] +------+-------+ + | MEDICAID | [place] | [id number] | | | [address] | | | N | | | | [place] | | | [place] | | | | [address] | | | SEW ON OPERATOR | | | | | + [...] | Self | [birth year] | Home: | [address] | | | al/Fam | | 1990 | [phone] | [place] [address] | | | wilda | | | [phone] | | + +--------+ +--------+ + +
--- OUTSIDE RECORDS SUMMARY | ~2019-07-01 | XMS | Encounter Summary ---
Demographics + + + | Address | [address] | | | [place] [address] | + + + | Home Phone | | + + + | Preferred Language | Unknown | + + + | Marital Status | | + + + | Taoist Affiliation | Unknown | + + + | Race | Unknown | + + + | Ethnic Group | Unknown | + + + Author + + + | Author | [facility] | | | and [place] | + + + | Organization | [facility] | | | and [place] [...] Team Providers + +------+ + | Care Bag Adjuster Name | Role | Phone | + [...] Provider Unknown | | | | | [place], [place] | | | | | | [phone] | (Fax) | | | | | [...]
--- OUTSIDE RECORDS SUMMARY | ~2019-07-01 | XMS | Encounter Summary ---
Demographics + + + | Address | [address] | | | [place] [address] | + + + | Home Phone | | + + + | Preferred Language | Unknown | + + + | Marital Status | | + + + | Zoroastrian Affiliation | Unknown | + + + | Race | Unknown | + + + | Ethnic Group | Unknown | + + + Author + + + | Author | [facility] | | | and [place] | + + + | Organization | [facility] | | | and [...] Team Providers + +------+ + | Care Cell Changer Name | Role | Phone | + +------+ + PCP | Unavailable | + +------+ + Encounter Details +--------+ + + + + | Date | Type | Department | Care Team | Description | +--------+ + + + + | 07/25/ | Hospital | [facility] | Conversion | Headache | | 2012 | Encounter | [facility] | Transaction, | | | | | CLINICAL DECISION | Provider Unknown | | | | | [address] [facility] | [phone] | | | | | [place] | | | | | | [address] | Ulysses Sanabria MD [address] | | | | | [phone] | [address] | | | | | | [place] | | | | | | [place] [address] | | | | | | [phone] | | | | | | | [...] Note by Farida Mcmillan RN at 07/25/13 7593 Author: Farida Mcmillan RN Service: (none) Author Type: Registered Nurse Filed: 07/25/131819 Date of Service: 07/25/131818 Status: Signed Engineering Technician: Farida Mcmillan RN (Registered Nurse) Pt meets [...] 07/25/131821 Date of Service: 07/25/131699 Status: Signed Engineering Technician: Farida Mcmillan RN (Registered Nurse) Nuclear Medicine [...] | | The possibility of "sound alike" carbonation equipment tender errors, addition | | | and/or deletions [...] The possibility of "sound alike" | | carbonation equipment tender errors, addition and/or deletions may occur. If [...] system. The possibility of "sound a like" carbonation equipment tender errors, addition and/or deletions may occur. If [...] | Testing performed at | | | [facility];[address] [place] [address] GRAM STAIN | | | NO WBC'S SEEN | | | NO ORGANISMS SEEN | | | Testing performed at [facility];[address] [place] [address] | | | CULTURE NO GROWTH 3 DAYS | | | Testing performed | | | at [facility], [address] [place] [address] REPORT STATUS | | | 07/29/2013 FINAL [...] EXTERNAL LAB | | Testing performed at [facility];[address];[place] [address] APPEARANCE | | | CLEAR Testing performed at | | | [facility];[address];[place] [address] Tube Number, CSF | | | 3 Testing performed at [facility];[address];[place] [address] CSF RBC | | | 84 High Testing performed at [facility];[address];[place] [address] CSF WBC | | | 3 Testing performed at [facility];[address];[place], [place] | | | [address] | | + + + + +---------+ [...] | EXTERNAL LAB | | performed at [facility];[address] [place] [address];[place] [address] | | + + + + +---------+ [...] EXTERNAL LAB | | Testing performed at [facility];[address] [place] [address];[place] [address] | | + + + + +---------+ [...]
--- OUTSIDE RECORDS SUMMARY | ~2019-07-01 | XMS | Encounter Summary ---
Demographics + + + | Address | [address] | | | [place] [address] | + + + | Home Phone | | + + + | Preferred Language | Unknown | + + + | Marital Status | | + + + | Judaism Affiliation | Unknown | + + + | Race | Unknown | + + + | Ethnic Group | Unknown | + + + Author + + + | Author | [facility] | | | and [place] | + + + | Organization | [facility] | | | and [place] | [...] Team Providers + +------+ + | Care Product Designer Name | Role | Phone | + +------+ + PCP | Unavailable | + +------+ + Encounter Details +--------+ + + + + | Date | Type | Department | Care Team | Description | +--------+ + + + + | 07/06/ | Hospital | [facility] | Conversion | Headache | | 2012 | Encounter | CONVERSION [address] | Transaction, | | | | | [address] | Provider Unknown | | | | | [place] | | | | | | [address] | | | | | | [phone] | | | +--------+ + + + [...]
--- OUTSIDE RECORDS SUMMARY | ~2019-07-01 | XMS | Clinical Summary ---
Demographics + + + | Address | [address] | | | [place] [address] | + + + | Home Phone | | + + + | Preferred Language | Unknown | + + + | Marital Status | | + + + | Faith Affiliation | Unknown | + + + | Race | Unknown | + + + | Ethnic Group | Unknown | + + + Author + + + | Author | [facility] (Historical as of | | | 03-11-19) | + + + | Organization | [facility] (Historical as of | | | 03-11-19) [...] Team Providers + +------+ + | Care Sampler Tester Name | Role | Phone | [...] +------+-------+ + | MEDICAID | [place] | [id number] | | | [address] | | | N | | | | [place] | | | [place] | | | | [address] | | | DOOR MANAGER | | | | | + +--------+ [...] | Self | [birth year] | Home: | [address] | | | al/Fam | | 1990 | [phone] | [place] [address] | | | [place] | | | [phone] | | + +--------+ +--------+ + +
--- OUTSIDE RECORDS SUMMARY | ~2019-07-01 | XMS | Clinical Summary ---
Demographics + + + | Address | [address] | | | [place] [address] | + + + | Home Phone | | + + + | Preferred Language | Unknown | + + + | Marital Status | | + + + | Jainism Affiliation | Unknown | + + + | Race | Unknown | + + + | Ethnic Group | Unknown | + + + Author + + + | Author | [facility] | | | and [place] | + + + | Organization | [facility] | | | and [...] Team Providers + +------+ + | Care Drain Technician Name | Role | Phone | [...]
--- OUTSIDE RECORDS SUMMARY | ~2019-07-01 | XMS | Encounter Summary ---
Demographics + + + | Address | [address] | | | [place] [address] | + + + | Home Phone | | + + + | Preferred Language | Unknown | + + + | Marital Status | | + + + | Catholic Affiliation | Unknown | + + + | Race | Unknown | + + + | Ethnic Group | Unknown | + + + Author + + + | Author | and Services Rod | | | and [place] | + + + | Organization | and [facility] Rod | | | and [place] [...] Team Providers + +------+ + | Care Medical Office Clerk Name | Role | Phone | + [...] Provider Unknown | | | | | [place], [place] | | | | | | [phone] | (Fax) | | | | | [...]
--- OUTSIDE RECORDS SUMMARY | ~2019-07-01 | XMS | Clinical Summary ---
Demographics + + + | Address | [address] | | | [place] [address] | + + + | Home Phone | | + + + | Preferred Language | Unknown | + + + | Marital Status | | + + + | Mandaeism Affiliation | Unknown | + + + | Race | Unknown | + + + | Ethnic Group | Unknown | + + + Author + + + | Author | [facility] | | | and [place] | + + + | Organization | [facility] Rod | | | and [...] Team Providers + +------+ + | Care Speed Belt Sander Tender Name | Role | Phone | [...]
--- OUTSIDE RECORDS SUMMARY | ~2019-07-01 | XMS | Encounter Summary ---
Demographics + + + | Address | [address] | | | [place] [address] | + + + | Home Phone [...] | [facility] | | | and [...] Team Providers + +------+ + | Care Shipping Agent Name | Role | Phone | + +------+ + PCP | Unavailable | + +------+ + Encounter Details +--------+ + + + + | Date | Type | Department | Care Team | Description | +--------+ + + + + | 07/06/ | Hospital | [facility] | Conversion | Headache | | 2012 | Encounter | CONVERSION DEP [address] | Transaction, | | | | | [address] | Provider Unknown | | | | | [place] | | | | | | [address] | | | | | | [phone] | | | +--------+ + + + [...]
--- OUTSIDE RECORDS SUMMARY | ~2019-07-01 | XMS | Encounter Summary ---
Demographics + + + | Address | [address] | | | [place] [address] | + + + | Home Phone [...] Author | [facility] and Services Rod | | | and [place] | + + + | Organization | [facility] and [facility] Rod | | [...] Team Providers + +------+ + | Care [employer] Principal Name | Role | Phone | + [...] [place] | | | | | | [address] | | | | | | [phone] | | | +--------+ + + + [...]
--- OUTSIDE RECORDS SUMMARY | ~2019-07-01 | XMS | Encounter Summary ---
Demographics + + + | Address | [address] | | | [place] [address] | + + + | Home Phone [...] | Author | [facility] and Services Rod | | | and [place] | + + + | Organization | [facility] Rod | | | and [...] Team Providers + +------+ + | Care Aerospace Products Sales Engineer Name | Role | Phone | + +------+ + | Dixon Morris PA-C | PCP | | + +------+ + Encounter Details +--------+ + + + + | Date | Type | Department | Care Team | Description | +--------+ + + + + | 03/13/ | Orders Only | [facility] | [place], | | | 2018 | | GASTROENTEROLOGY | [address] | | | | | [address] | [address] | | | | | [place], [place] | [address] [place], [place] | | | | | [address] | [address] | | | | | [phone] | | | +--------+ + + + [...]
--- OUTSIDE RECORDS SUMMARY | ~2019-07-01 | XMS | Encounter Summary ---
Demographics + + + | Address | [address] | | | [place] [address] | + + + | Home Phone | | + + + | Preferred Language | Unknown | + + + | Marital Status | | + + + | Mormon Affiliation | Unknown | + + + | Race | Unknown | + + + | Ethnic Group | Unknown | + + + Author + + + | Author | [facility] | | | and [place] | + + + | Organization | [facility] Rod | | | and [place] [...] Team Providers + +------+ + | Care Burner Machine Operator Name | Role | Phone | + +------+ + PCP | Unavailable | + +------+ + Encounter Details +--------+ + + + + | Date | Type | Department | Care Team | Description | +--------+ + + + + | 07/06/ | Hospital | [facility] | Conversion | Headache | | 2012 | Encounter | CONVERSION [address]P [address] | Transaction, | | | | | [address] | Provider Unknown | | | | | [place] | | | | | | [address] | | | | | | [phone] | | | +--------+ + + + [...]
== END 2019-07-02 00:18 | disposition home or self-care (01) ==
LOC: ED 22:14
DX: J10.1 Influenza due to other identified influenza virus with other respiratory manifestations (principal); F17.200 Nicotine dependence, unspecified, uncomplicated; Z88.5 Allergy status to narcotic agent; Z88.6 Allergy status to analgesic agent; Z88.0 Allergy status to penicillin; Z79.899 Other long term (current) drug therapy
CPT/HCPCS: 87502; 99283; A9270

== ENCOUNTER 2019-08-05 17:35 | Emergency (ER) | payer OTHER ==
[~2019-08-05] VITALS: Ht 162.6 cm; Wt 82.5 kg
== END 2019-08-05 18:40 | disposition home or self-care (01) ==
LOC: ED 17:35
DX: S63.616A Unspecified sprain of right little finger, initial encounter (principal); Y04.8XXA Assault by other bodily force, initial encounter; J45.909 Unspecified asthma, uncomplicated; Z87.442 Personal history of urinary calculi; F17.200 Nicotine dependence, unspecified, uncomplicated; Z88.5 Allergy status to narcotic agent; Z88.0 Allergy status to penicillin; Z88.6 Allergy status to analgesic agent; Z79.899 Other long term (current) drug therapy
CPT/HCPCS: 73130; 99283-25

== ENCOUNTER 2019-09-25 12:57 | Emergency (ER) | payer OTHER ==
[~2019-09-25] VITALS: Ht 162.6 cm; Wt 84.8 kg
== END 2019-09-25 13:37 | disposition home or self-care (01) ==
LOC: ED 12:57
DX: R05 Cough (principal); R09.89 Other specified symptoms and signs involving the circulatory and respiratory systems

== ENCOUNTER 2019-10-04 20:24 | Emergency (ER) | payer OTHER ==
[~2019-10-04] VITALS: Ht 162.6 cm; Wt 84.8 kg
[2019-10-04] MEDS ORDERED: OMEPRAZOLE20 MG PO (23:17)
== END 2019-10-04 23:28 | disposition home or self-care (01) ==
LOC: ED 20:24
DX: A08.4 Viral intestinal infection, unspecified (principal); J45.909 Unspecified asthma, uncomplicated; F17.200 Nicotine dependence, unspecified, uncomplicated; Z88.0 Allergy status to penicillin; Z88.5 Allergy status to narcotic agent; Z88.6 Allergy status to analgesic agent
CPT/HCPCS: 76705; 80053; 81001; 83690; 83735; 84703; 85025; 96361; 99284-25; J1170; J2405; J7030

== ENCOUNTER 2019-12-20 21:07 | Emergency (ER) | payer OTHER ==
[~2019-12-20] VITALS: Ht 162.6 cm; Wt 86.2 kg
--- OUTSIDE RECORDS SUMMARY | ~2019-12-20 | XMS | Encounter Summary ---
Demographics + + + | Address | [address] | | | [place] [address] | + + + | Home Phone | | + + + | Preferred Language | Unknown | + + + | Marital Status | | + + + | Adventism Affiliation | Unknown | + + + | Race | Unknown | + + + | Ethnic Group | Unknown | + + + Author + + + | Author | [facility] and Services Rod | | | and [place] | + + + | Organization | [facility] Rod | | | and [place] | + + + | Address | Unknown | + + + | Phone | Unavailable | + + + Support + + +---------+ + | Name | Relationship | Address | Phone | + + +---------+ + | Mail Voice | ECON | Unknown | | + + +---------+ + Care Team Providers + +------+ + | Care Student Ministries Director Name | Role | Phone | + +------+ + PCP | Unavailable | + +------+ + Encounter Details +--------+ + + + + | Date | Type | Department | Care Team | Description | +--------+ + + + + | 07/06/ | Hospital | [facility] | Conversion | Headache | | 2012 | Encounter | CONVERSION [address]P [address] | Transaction, | | | | | [address] | Provider Unknown | | | | | [place] | | | | | | [address] | | | | | | [phone] | | | +--------+ + + + + Social History + +-------+ +--------+------+ | Tobacco Use | Types | Packs/Day | Years | Date | | | | | Used | | + +-------+ +--------+------+ | Never Assessed | | | | | + +-------+ +--------+------+ + + + | Sex Assigned at | Date Recorded | | | | + + + | Not on file | | + + + + + + + | Job Start Date | Occupation | Industry | + + + + | Not on file | Not on file | Not on file | + + + + + + + + | Travel History | Travel Start | Travel End | + + + + + + | No recent travel history available. | + + documented as of this encounter Plan of Treatment Not on filedocumented as of this encounter Procedures + +--------+ + + + | Procedure Name | Priori | Date/Time | Associated Diagnosis | Comments | | | ty | | | | + +--------+ + + + | MRI BRAIN WO | Routin | 06/28/2013 | | Results for this | | CONTRAST | e | 12:34 PM | | procedure are in the | | | | PST | | results section. | + +--------+ + + + documented in this encounter Results MRI Brain wo Contrast (06/28/2013 12:34 PM PST) + + | Specimen | + + | | + + + + + | Narrative | Performed At | + + + | This is a non-reportable procedure without a radiologist report and | | | is used for image storage only | | + + + + + | Procedure Note | + + | Marcio Soto Aarti - 03/17/2019 8:07 PM PDT This is a non-reportable procedure | | without a radiologist report and isused for image storage only | + + documented in this encounter Visit Diagnoses + + | Diagnosis | + + | Headache(784.0) Headache | + + documented in this encounter"
--- OUTSIDE RECORDS SUMMARY | ~2019-12-20 | XMS | Encounter Summary ---
Demographics + + + | Address | [address] | | | [place] [address] | + + + | Home Phone | | + + + | Preferred Language | Unknown | + + + | Marital Status | | + + + | Baptism Affiliation | Unknown | + + + | Race | Unknown | + + + | Ethnic Group | Unknown | + + + Author + + + | Author | [facility] and Services Rod | | | and [place] | + + + | Organization | [facility] Rod | | | and [place] | [...] Team Providers + +------+ + | Care Co Founder And Cto Name | Role | Phone | + +------+ + PCP | Unavailable | + +------+ + Encounter Details +--------+ + + + + | Date | Type | Department | Care Team | Description | +--------+ + + + + | 07/06/ | Hospital | [facility] [place] [facility] IP | Conversion | Headache | | 2012 | Encounter | CONVERSION DEP [address] | Transaction, | | | | | [address] | Provider Unknown | | | | | [place] | | | | | | [address] | | | | | | [phone] | | | +--------+ + + + [...] + +--------+ + + + | MRI ANGIOGRAM HEAD | Routin | 06/28/2013 | | Results for this | | WO CONTRAST | e | 12:34 PM | | procedure are in the | | | | PST | | results section. | + +--------+ + + + documented in this encounter Results MRI Angiogram Head wo Contrast (06/28/2013 12:34 PM PST) + [...] Note | + + | Marcio Soto - 03/17/2019 8:07 PM PDT This is a non-reportable procedure | | without a radiologist report and isused for image storage only | + + documented in this encounter Visit Diagnoses + + | Diagnosis | + + | Headache(784.0) Headache | + + documented in this encounter"
--- OUTSIDE RECORDS SUMMARY | ~2019-12-20 | XMS | Encounter Summary ---
Demographics + + + | Address | [address] | | | [place] [address] | + + + | Home Phone | | + + + | Preferred Language | Unknown | + + + | Marital Status | | + + + | Tenriism Affiliation | Unknown | + + + | Race | Unknown | + + + | Ethnic Group | Unknown | + + + Author + + + | Author | [facility] and [facility] Rod | | | and [place] | + + + | Organization | [facility] Rod | | | and [place] [...] Team Providers + +------+ + | Care Certified Alcohol Counselor Name | Role | Phone | + [...] Provider Unknown | | | | | [place], [place] | | | | | | [phone] | (Fax) | | | | | [...]
--- OUTSIDE RECORDS SUMMARY | ~2019-12-20 | XMS | Clinical Summary ---
Demographics + + + | Address | [address] | | | [place] [address] | + + + | Home Phone | | + + + | Preferred Language | Unknown | + + + | Marital Status | | + + + | Latter-Day Affiliation | Unknown | + + + | Race | Unknown | + + + | Ethnic Group | Unknown | + + + Author + + + | Author | [facility] and [facility] Rod | | | and [place] | + + + | Organization | [facility] Rod | | | and [...] Team Providers + +------+ + | Care Radiation Protection Technician Name | Role | Phone | + +------+ + | Dixon Morris PA-C | PCP | | + +------+ + Allergies + + + + + + | Active Allergy | Reactions | Severity | Noted | Comments | | | | | Date | | + + + + + + | Amoxicillin | Hives | High | 07/12/20 | | | | | | 13 | | + + + + + + | Codeine | Palpitations | Medium | 03/13/20 | Tachycardia | | | | | 18 | | + + + + + + | Ketorolac | Other (See Comments) | Medium | 03/13/20 | Pt states she | | | | | 18 | freaks out and wants | | | | | | to pull her hair | | | | | | out | + + + + + + Medications + + + +---------+------+------+-------+ | Medication | Sig | Dispensed | Refills | Star | End | Statu | | | | | | t | Date | s | | | | | | Date | | | + + + +---------+------+------+-------+ | | Take 1 tablet by | | 0 | 12/1 | | Activ | | oxyCODONE-acetaminop | mouth every 8 | | | 8/20 | | e | | hen (PERCOCET) | (eight) hours as | | | 13 | | | | 10-325 mg per tablet | needed. | | | | | | + + + +---------+------+------+-------+ | cyclobenzaprine | Take 5 mg by mouth | | 0 | 12/3 | | Activ | | (FLEXERIL) 5 MG | as needed. | | | 1/20 | | e | | tablet | | | | 13 | | | + + + +---------+------+------+-------+ | promethazine | Take 25 mg by mouth | | 0 | 12/3 | | Activ | | (PHENERGAN) 25 mg | every 6 (six) hours | | | 1/20 | | e | | tablet | as needed. | | | 13 | | | + + + +---------+------+------+-------+ Active Problems Not on file Social History + +-------+ +--------+------+ | Tobacco [...] recent travel history available. | + + Last Filed Vital Signs + + + + + | Vital Sign | Reading | Time Taken | Comments | + + + + + | Blood Pressure | 108/62 | 03/13/2018 6:58 PM | | | | | PDT | | + + + + + | Pulse | 93 | 03/13/2018 6:58 PM | | | | | PDT | | + + + + + | Temperature | 37 C (98.6 F) | 03/13/2018 6:58 PM | | | | | PDT | | + + + + + | Respiratory Rate | 16 | 03/13/2018 6:58 PM | | | | | PDT | | + + + + + | Oxygen Saturation | - | - | | + + + + + | Inhaled Oxygen | - | - | | | Concentration | | | | + + + + + | Weight | 84.7 kg (186 lb 11.2 | 03/13/2018 6:58 PM | | | | oz) | PDT | | + + + + + | Height | 165.1 cm (5' 5") | 03/13/2018 6:58 PM | | | | | PDT | | + + + + + | Body Mass Index | 31.07 | 03/13/2018 6:58 PM | | | | | PDT | | + + + + + Plan of Treatment + + + + + | Health Maintenance | Due Date | Last Done | Comments | + + + + + | Vaccine: | | | | | Pneumococcal 19-64 | 7 | | | | (1 of 1 - PPSV23) | | | | + + + + + | Vaccine: | | | | | Dtap/Tdap/Td (1 - | 2 | | | | Tdap) | | | | + + + + + | Cervical Cancer | | | | | Screening (Pap) | 2 | | | + + + + + | Vaccine: Influenza | | | | | (Season Ended) | 0 | | | + + + + + Results Not on filefrom Last 3 Months
--- OUTSIDE RECORDS SUMMARY | ~2019-12-20 | XMS | Clinical Summary ---
Demographics + + + | Address | [address] | | | [place] [address] | + + + | Home Phone | | + + + | Preferred Language | Unknown | + + + | Marital Status | | + + + | Zoroastrian Affiliation | Unknown | + + + | Race | Unknown | + + + | Ethnic Group | Unknown | + + + Author + + + | Author | [facility] (Historical as of | | | 03-11-19) | + + + | Organization | [facility] (Historical as of | | | 03-11-19) [...] Team Providers + +------+ + | Care Manager Clinical Services Name | Role | Phone | + [...] +------+-------+ + | MEDICAID | [place] | [id number] | | | [address] | | | N | | | | [place] | | | [place] | | | | [address] | | | GEAR CUTTING MACHINE OPERATOR | | | | | + +--------+ [...] | Self [birth year] | Home: | [address] | | | al/Fam | | 1990 | [phone] | [place] [address] | | | wilda | | | [phone] | | + +--------+ +--------+ + +
--- OUTSIDE RECORDS SUMMARY | ~2019-12-20 | XMS | Encounter Summary ---
Demographics + + + | Address | [address] | | | [place] [address] | + + + | Home Phone | | + + + | Preferred Language | Unknown | + + + | Marital Status | | + + + | Sabianism Affiliation | Unknown | + + + | Race | Unknown | + + + | Ethnic Group | Unknown | + + + Author + + + | Author | [facility] and Services Rod | | | and [place] | + + + | Organization | [facility] Rod | | | and [place] [...] Team Providers + +------+ + | Care Accountancy Professor Name | Role | Phone | + [...] Provider Unknown | | | | | [place], [place] | | | | | | [phone] | (Fax) | | | | | [...]
--- OUTSIDE RECORDS SUMMARY | ~2019-12-20 | XMS | Encounter Summary ---
Demographics + + + | Address | [address] | | | [place] [address] | + + + | Home Phone | | + + + | Preferred Language | Unknown | + + + | Marital Status | | + + + | Jewish Affiliation | Unknown | + + + | Race | Unknown | + + + | Ethnic Group | Unknown | + + + Author + + + | Author | [facility] and Services Rod | | | and [place] | + + + | Organization | [facility] Rod | | | and [place] [...] Team Providers + +------+ + | Care Rubber Molder Name | Role | Phone | + +------+ + PCP | Unavailable | + +------+ + Encounter Details +--------+ + + + + | Date | Type | Department | Care Team | Description | +--------+ + + + + | 07/25/ | Hospital | [facility] | Conversion | Headache | | 2012 | Encounter | [facility] | Transaction, | | | | | CLINICAL DECISION | Provider Unknown | | | | | [address] [facility] | [phone] | | | | | [place] | | | | | | [address] | Ulysses Sanabria MD [address] | | | | | [phone] | [address] | | | | | | [place] | | | | | | [place] [address] | | | | | | [phone] | | | | | | | [...] Note by Farida Mcmillan RN at 07/25/13 3363 Author: Farida Mcmillan RN Service: (none) Author Type: Registered Nurse Filed: 07/25/131819 Date of Service: 07/25/131818 Status: Signed Tile And Marble Installer: Farida Mcmillan RN (Registered Nurse) Pt meets [...] 07/25/131821 Date of Service: 07/25/131699 Status: Signed Tile And Marble Installer: Farida Mcmillan RN (Registered Nurse) Nuclear Medicine [...] | | The possibility of "sound alike" big data lead errors, addition | | | and/or deletions [...] The possibility of "sound alike" | | big data lead errors, addition and/or deletions may occur. If [...] system. The possibility of "sound a like" big data lead errors, addition and/or deletions may occur. If [...] | Testing performed at | | | [facility];[address] [place] [address] GRAM STAIN | | | NO WBC'S SEEN | | | NO ORGANISMS SEEN | | | Testing performed at [facility];[address] [place] [address] | | | CULTURE NO GROWTH 3 DAYS | | | Testing performed | | | [facility] [address] [place] [address] REPORT STATUS | | | 07/29/2013 FINAL [...] EXTERNAL LAB | | Testing performed at [facility];[address] [address] APPEARANCE | | | CLEAR Testing performed at | | | [facility];[address];[place] [address] Tube Number, CSF | | | 3 Testing performed at [facility];[address];[place] [address] CSF RBC | | | 84 High Testing performed at [facility];[address];[place] [address] CSF WBC | | | 3 Testing performed at [facility];[address];[place], [place] | | | [address] | | + + + + +---------+ [...] | EXTERNAL LAB | | performed at [facility];[address] [place] [address];[place] [address] | | + + + + +---------+ [...] EXTERNAL LAB | | Testing performed at [facility];[address] [place] [address];[place] [address] | | + + + + +---------+ [...]
--- OUTSIDE RECORDS SUMMARY | ~2019-12-20 | XMS | Encounter Summary ---
Demographics + + + | Address | [address] | | | [place] [address] | + + + | Home Phone | | + + + | Preferred Language | Unknown | + + + | Marital Status | | + + + | Mu-Ism Affiliation | Unknown | + + + | Race | Unknown | + + + | Ethnic Group | Unknown | + + + Author + + + | Author | [facility] and [facility] Rod | | | and [place] | + + + | Organization | [facility] and [facility] Rod | | | and [...] Team Providers + +------+ + | Care Carburetor Specialist Name | Role | Phone | + +------+ + | Dixon Morris PA-C | PCP | | + +------+ + Encounter Details +--------+ + + + + | Date | Type | Department | Care Team | Description | +--------+ + + + + | 03/13/ | Orders Only | [facility] | [place], | | | 2018 | | GASTROENTEROLOGY | [address] | | | | | [address] | [place], | | | | | [place] | [place] [address] | | | | | [address] | [phone] | | | | | [phone] | | | +--------+ + + + [...]
--- OUTSIDE RECORDS SUMMARY | ~2019-12-20 | XMS | Encounter Summary ---
Demographics + + + | Address | [address] | | | [place] [address] | + + + | Home Phone | | + + + | Preferred Language | Unknown | + + + | Marital Status | | + + + | Yarsanism Affiliation | Unknown | + + + | Race | Unknown | + + + | Ethnic Group | Unknown | + + + Author + + + | Author | [facility] and [facility] | | | and [place] | + + + | Organization | [facility] Rod | | | and [...] Team Providers + +------+ + | Care Dog And Cat Food Cook Name | Role | Phone | + +------+ + PCP | Unavailable | + +------+ + Encounter Details +--------+ + + + + | Date | Type | Department | Care Team | Description | +--------+ + + + + | 07/06/ | Hospital | [facility] | Conversion | Headache | | 2012 | Encounter | CONVERSION [address] | Transaction, | | | | | [address] | Provider Unknown | | | | | [place] | | | | | | [address] | | | | | | [phone] | | | +--------+ + + + [...]
--- OUTSIDE RECORDS SUMMARY | ~2019-12-20 | XMS | Clinical Summary ---
Demographics + + + | Address | [address] | | | [place] [address] | + + + | Home Phone | | + + + | Preferred Language | Unknown | + + + | Marital Status | | + + + | Orthodoxy Affiliation | Unknown | + + + | Race | Unknown | + + + | Ethnic Group | Unknown | + + + Author + + + | Author | [facility] and [facility] | | | and [place] | + + + | Organization | [facility] Rod | | | and [place] [...] Team Providers + +------+ + | Care Animal Control Supervisor Name | Role | Phone | + [...]
--- OUTSIDE RECORDS SUMMARY | ~2019-12-20 | XMS | Encounter Summary ---
Demographics + + + | Address | [address] | | | [place] [address] | + + + | Home Phone [...] Organization | [facility] and [facility] Rod | | | and [place] [...] Team Providers + +------+ + | Care Burlap Roll Coverer Name | Role | Phone | + [...] Provider Unknown | | | | | [place], [place] | | | | | | [phone] | (Fax) | | | | | [...]
--- OUTSIDE RECORDS SUMMARY | ~2019-12-20 | XMS | Encounter Summary ---
Demographics + + + | Address | [address] | | | [place] [address] | + + + | Home Phone [...] + | Organization | [facility] | [...] Team Providers + +------+ + | Care Band Instrument Maker Name | Role | Phone | + +------+ + | Dixon Morris PA-C | PCP | | + +------+ + Encounter Details +--------+ + + + + | Date | Type | Department | Care Team | Description | +--------+ + + + + | 03/13/ | Orders Only | [facility] | [place], | | | 2018 | | GASTROENTEROLOGY | [address] | | | | | [address] | [place], | | | | | [place] | [place] [address] | | | | | [address] | [phone] | | | | | [phone] | | | +--------+ + + + [...]
--- OUTSIDE RECORDS SUMMARY | ~2019-12-20 | XMS | Encounter Summary ---
Demographics + + + | Address | [address] | | | [place] [address] | + + + | Home Phone | | + + + | Preferred Language | Unknown | + + + | Marital Status | | + + + | Jain Affiliation | Unknown | + + + | Race | Unknown | + + + | Ethnic Group | Unknown | + + + Author + + + | Author | [facility] and [facility] | | | and [place] | + + + | Organization | [facility] and [facility] Rod | | | and [place] | [...] Team Providers + +------+ + | Care Event Coordinator Name | Role | Phone | + +------+ + PCP | Unavailable | + +------+ + Encounter Details +--------+ + + + + | Date | Type | Department | Care Team | Description | +--------+ + + + + | 07/06/ | Hospital | [facility] | Conversion | Headache | | 2012 | Encounter | CONVERSION [address] | Transaction, | | | | | [address] | Provider Unknown | | | | | [place] | | | | | | [address] | | | | | | [phone] | | | +--------+ + + + [...]
--- OUTSIDE RECORDS SUMMARY | ~2019-12-20 | XMS | Encounter Summary ---
Demographics + + + | Address | [address] | | | [place] [address] | + + + | Home Phone | | + + + | Preferred Language | Unknown | + + + | Marital Status | | + + + | Quaker Affiliation | Unknown | + + + | Race | Unknown | + + + | Ethnic Group | Unknown | + + + Author + + + | Author | [facility] and [facility] | | | and [place] | + + + | Organization | [facility] and [facility] | | | and [...] Team Providers + +------+ + | Care Insecticide Sprayer Name | Role | Phone | + [...] Provider Unknown | | | | | [place], [place] | | | | | | [address] | (Fax) | | | | | [...]
--- OUTSIDE RECORDS SUMMARY | ~2019-12-20 | XMS | Encounter Summary ---
Demographics + + + | Address | [address] | | | [place] [address] | + + + | Home Phone | | + + + | Preferred Language | Unknown | + + + | Marital Status | | + + + | Protestant Affiliation | Unknown | + + + | Race | Unknown | + + + | Ethnic Group | Unknown | + + + Author + + + | Author | [facility] | | | and [place] | + + + | Organization | [facility] | | | and [...] Team Providers + +------+ + | Care Wildland Firefighter Name | Role | Phone | + +------+ + PCP | Unavailable | + +------+ + Encounter Details +--------+ + + + + | Date | Type | Department | Care Team | Description | +--------+ + + + + | 07/25/ | Hospital | [facility] | Conversion | Headache | | 2012 | Encounter | [facility] | Transaction, | | | | | CLINICAL DECISION | Provider Unknown | | | | | [address] [facility] | [phone] | | | | | [place] | | | | | | [address] | Ulysses Sanabria MD [address] | | | | | [phone] | [address] | | | | | | [place] | | | | | | [place] [address] | | | | | | [phone] | | | | | | | [...] Note by Farida Mcmillan RN at 07/25/13 3585 Author: Farida Mcmillan RN Service: (none) Author Type: Registered Nurse Filed: 07/25/131819 Date of Service: 07/25/131818 Status: Signed Process Engineering Technician: Farida Mcmillan RN (Registered Nurse) [...] 07/25/131821 Date of Service: 07/25/131699 Status: Signed Process Engineering Technician: Farida Mcmillan RN (Registered Nurse) [...] | | The possibility of "sound alike" adjunct psychology faculty member errors, addition | | | and/or deletions [...] The possibility of "sound alike" | | adjunct psychology faculty member errors, addition and/or deletions may occur. If [...] system. The possibility of "sound a like" adjunct psychology faculty member errors, addition and/or deletions may occur. If [...] | | | [facility];[address] [place] [address] GRAM STAIN | | | NO WBC'S SEEN | | | NO ORGANISMS SEEN | | | Testing performed at [facility] [place] [address] | | | CULTURE NO GROWTH 3 DAYS | | | Testing performed | | | at [facility], [address] [place] [address] REPORT STATUS | | | 07/29/2013 FINAL [...] at [facility];[address];[place] [address] APPEARANCE | | | CLEAR Testing performed at | | | [facility];[address];[place] [address] Tube Number, CSF | | | 3 Testing performed at [facility];[address] | | [address];[place] [address] CSF RBC | | | 84 High Testing performed at [facility];[address] | | [address];[place] [address] CSF WBC | | | 3 Testing performed at [facility];[address];[place], [place] | | | [address] | | + + + + +---------+ [...] | performed at [facility];[address] [place] [address];[place] [address] | | + + + + +---------+ [...] Testing performed at [facility];[address] [place] [address];[place] [address] | | + + + + +---------+ [...]
--- OUTSIDE RECORDS SUMMARY | ~2019-12-20 | XMS | Clinical Summary ---
Demographics + + + | Address | [address] | | | [place] [address] | + + + | Home Phone [...] | Author | [facility] [employer] (Historical as of | | | 03-11-19) | + + + | Organization | [facility] [employer] (Historical as of | | | 03-11-19) [...] Team Providers + +------+ + | Care Plan Consultant Name | Role | Phone | [...] +------+-------+ + | MEDICAID | [place] | [id number] | | | [address] | | | N | | | | [place] | | | [place] | | | | [address] | | | [employer]INGLE GRADER | | | | | + +--------+ [...] | Self | [birth year] | Home: | [address] | | | al/Fam | | 1990 | [phone] [place] [address] | | | wilda | | | [phone] | | + +--------+ +--------+ + +
[~2019-12-20 21:07] MED LIST changes: +PROVENTIL HFA6.7 GM INH
[2019-12-21] MEDS ORDERED: NORCO 5-325 TA1 EACH PO (01:12)
== END 2019-12-21 01:41 | disposition home or self-care (01) ==
LOC: ED 21:07
DX: R10.32 Left lower quadrant pain (principal); J45.909 Unspecified asthma, uncomplicated; F17.200 Nicotine dependence, unspecified, uncomplicated; Z88.0 Allergy status to penicillin; Z88.5 Allergy status to narcotic agent; Z79.899 Other long term (current) drug therapy; Z90.711 Acquired absence of uterus with remaining cervical stump; Z90.721 Acquired absence of ovaries, unilateral
CPT/HCPCS: 76830; 76856; 80053; 81001; 83690; 85025; 96374; 96375; 96376; 99284-25; J1170; J2405; J7030

== ENCOUNTER 2020-01-21 15:19 | Emergency (ER) | payer OTHER ==
[~2020-01-21] VITALS: Ht 162.6 cm; Wt 86.2 kg
--- OUTSIDE RECORDS SUMMARY | ~2020-01-21 | XMS | Encounter Summary ---
Demographics + + + | Address | [address] | | | [place] [address] | + + + | Home Phone | | + + + | Preferred Language | Unknown | + + + | Marital Status | | + + + | Methodist Affiliation | Unknown | + + + | Race | Unknown | + + + | Ethnic Group | Unknown | + + + Author + + + | Author | [facility] | | | and [place] | + + + | Organization | [facility] | | | and [...] Team Providers + +------+ + | Care Blood Bank Manager Name | Role | Phone | + +------+ + | Dixon Morris PA-C | PCP | | + +------+ + Encounter Details +--------+ + + + + | Date | Type | Department | Care Team | Description | +--------+ + + + + | 07/25/ | Orders Only | [facility] | Conversion | | | 2012 | | [address]VERSION [address] | Transaction, | | | | [address] | Provider Unknown | | | | | [place], [place] | | | | | | [phone] | (Fax) | | | | | | | | +--------+ + + + [...] on file | | + + + documented as of this encounter Plan of Treatment Not on filedocumented as of this encounter Visit Diagnoses Not on filedocumented in this encounter"
--- OUTSIDE RECORDS SUMMARY | ~2020-01-21 | XMS | Encounter Summary ---
Demographics + + + | Address | [address] | | | [place] [address] | + + + | Home Phone [...] | Organization | [facility] | | | and [place] | [...] Team Providers + +------+ + | Care Community Planner Name | Role | Phone | + +------+ + PCP | Unavailable | + +------+ + Encounter Details +--------+ + + + + | Date | Type | Department | Care Team | Description | +--------+ + + + + | 07/06/ | Hospital | [facility] | Conversion | Headache | | 2012 | Encounter | [address] | Transaction, | | | | | [address] | Provider Unknown | | | | | [place] | | | | | | [address] | | | | | | [phone] | | | +--------+ + + + [...]
--- OUTSIDE RECORDS SUMMARY | ~2020-01-21 | XMS | Encounter Summary ---
Demographics + + + | Address | [address] | | | [place] [address] | + + + | Home Phone | | + + + | Preferred Language | Unknown | + + + | Marital Status | | + + + | Yazdanism Affiliation | Unknown | + + + | Race | Unknown | + + + | Ethnic Group | Unknown | + + + Author + + + | Author | [facility] | | | and [place] | + + + | Organization | [facility] | [...] Team Providers + +------+ + | Care Industrial Truck Mechanic Name | Role | Phone | + +------+ + PCP | Unavailable | + +------+ + Encounter Details +--------+ + + + + | Date | Type | Department | Care Team | Description | +--------+ + + + + | 07/25/ | Hospital | [facility] | Conversion | Headache | | 2012 | Encounter | [facility] | Transaction, | | | | | CLINICAL DECISION | Provider Unknown | | | | | [address] [facility] | [phone] | | | | | [place] | | | | | | [address] | Ulysses Sanabria MD [address] | | | | | [phone] | [address] | | | | | | [place] | | | | | | [place] [address] | | | | | | [phone] | | | | | | | [...] 07/25/131819 Date of Service: 07/25/131818 Status: Signed Swedish Masseuse: Farida Mcmillan RN (Registered Nurse) Pt meets [...] 07/25/131821 Date of Service: 07/25/131699 Status: Signed Swedish Masseuse: Farida Mcmillan RN (Registered Nurse) Nuclear Medicine contacted to get in touch with Deshawn STALLINGS regarding pt headache and pa in medication orders. Will continue to monitor pain status and darken room, decreasing stim ulus. Pt lying flat drinking adequate fluids at this time. Will await further orders docume nted in this encounter Procedure Gustavo Hicks ARNP - 07/25/2013 2:39 PM PSTFormatting of this note might be different fr om the original. Procedures by HAYLIE So at 07/25/131438 Author: HAYLIE So Service: (none) Author Type: Advanced Registered Nurse Prac titioner Filed: 07/25/13 1440 Date of Service: 07/25/131438 Status: Signed Swedish Masseuse: HAYLIE So (Advanced Registered Nurse Practitioner) Pre-procedure [...] | | The possibility of "sound alike" guard rail installer errors, addition | | | and/or deletions [...] The possibility of "sound alike" | | guard rail installer errors, addition and/or deletions may occur. If [...] system. The possibility of "sound a like" guard rail installer errors, addition and/or deletions may occur. If [...] | Testing performed at | | | [facility];[address] [place] [address] GRAM STAIN | | | NO WBC'S SEEN | | | NO ORGANISMS SEEN | | | Testing performed at [facility];[address] [place] [address] | | | CULTURE NO GROWTH 3 DAYS | | | Testing performed | | | at [facility], [address] [place] [address] REPORT STATUS | | | 07/29/2013 FINAL [...] EXTERNAL LAB | | Testing performed at [facility];[address] [place] [address];[place] [address] APPEARANCE | | | CLEAR Testing performed at | | | [facility];[address] [place], [place] [address]vd;[place] [address] Tube Number, CSF | | | 3 Testing performed at [facility];[address] | [address];[place] [address] CSF RBC | | | 84 High Testing performed at [facility];[address] | | [address];[place] [address] CSF WBC | | | 3 Testing performed at [facility];[address];[place], [place] | | | [address] | | + + + + +---------+ [...] | EXTERNAL LAB | | performed at [facility];[address] [place] [address];[place] [address] | | + + + + +---------+ [...] EXTERNAL LAB | | Testing performed at [facility];[address] [place] [address];[place] [address] | | + + + + +---------+ [...]
--- OUTSIDE RECORDS SUMMARY | ~2020-01-21 | XMS | Encounter Summary ---
Demographics + + + | Address | [address] | | | [place] [address] | + + + | Home Phone | | + + + | Preferred Language | Unknown | + + + | Marital Status | | + + + | Mandaen Affiliation | Unknown | + + + | Race | Unknown | + + + | Ethnic Group | Unknown | + + + Author + + + | Author | [facility] | | | and [place] | + + + | Organization | [facility] | | | and [place] [...] Team Providers + +------+ + | Care Cardiac Exercise Specialist Name | Role | Phone | [...] Provider Unknown | | | | | [place], [place] | | | | | | [phone] | (Fax) | | | | | [...]
--- OUTSIDE RECORDS SUMMARY | ~2020-01-21 | XMS | Encounter Summary ---
Demographics + + + | Address | [address] | | | [place] [address] | + + + | Home Phone | | + + + | Preferred Language | Unknown | + + + | Marital Status | | + + + | Restoration Affiliation | Unknown | + + + | Race | Unknown | + + + | Ethnic Group | Unknown | + + + Author + + + | Author | [facility] | | | and [place] | + + + | Organization | [facility] | | | and [...] Team Providers + +------+ + | Care Sales Department Clerk Name | Role | Phone | + +------+ + | Dixon Morris PA-C | PCP | | + +------+ + Encounter Details +--------+ + + + + | Date | Type | Department | Care Team | Description | +--------+ + + + + | 03/13/ | Orders Only | [facility] | [place], | | | 2018 | | GASTROENTEROLOGY | HAYLIE [address] | | | | | [address] | [place], | | | | | [place] | [place] [address] | | | | | [address] | [phone] | | | | | [phone] | | | +--------+ + + + [...]
--- OUTSIDE RECORDS SUMMARY | ~2020-01-21 | XMS | Encounter Summary ---
Demographics + + + | Address | [address] | | | [place] [address] | + + + | Home Phone | | + + + | Preferred Language | Unknown | + + + | Marital Status | | + + + | Taoism Affiliation | Unknown | + + + | Race | Unknown | + + + | Ethnic Group | Unknown | + + + Author + + + | Author | [facility] | | | and [place] | + + + | Organization | [facility] | | | and [place] [...] Team Providers + +------+ + | Care System Integration Engineer Name | Role | Phone | + +------+ + PCP | Unavailable | + +------+ + Encounter Details +--------+ + + + + | Date | Type | Department | Care Team | Description | +--------+ + + + + | 07/06/ | Hospital | [facility] | Conversion | Headache | | 2012 | Encounter | [address] | Transaction, | | | | | [address] | Provider Unknown | | | | | [place] | | | | | | [address] | | | | | | [phone] | | | +--------+ + + + [...]
--- OUTSIDE RECORDS SUMMARY | ~2020-01-21 | XMS | Clinical Summary ---
Demographics + + + | Address | [address] | | | [place] [address] | + + + | Home Phone | | + + + | Preferred Language | Unknown | + + + | Marital Status | | + + + | Pentecostal Affiliation | Unknown | + + + | Race | Unknown | + + + | Ethnic Group | Unknown | + + + Author + + + | Author | [facility] | | | and [place] | + + + | Organization | [facility] | | | and [place] [...] Team Providers + +------+ + | Care Tube Skiver Name | Role | Phone | + [...] [id number]) | | | | + + +-------+ [...]
[2020-01-21] MEDS ORDERED: TRAMADOL HCL50 MG PO (18:11)
== END 2020-01-21 18:44 | disposition home or self-care (01) ==
LOC: ED 15:19
DX: R10.2 Pelvic and perineal pain (principal); J45.909 Unspecified asthma, uncomplicated; F17.200 Nicotine dependence, unspecified, uncomplicated; Z88.0 Allergy status to penicillin; Z88.5 Allergy status to narcotic agent; Z79.899 Other long term (current) drug therapy; Z90.710 Acquired absence of both cervix and uterus
CPT/HCPCS: 76830; 76856; 80053; 81001; 83690; 84703; 85025; 96374; 96375; 99284-25; J2270; J2405; J7030

== ENCOUNTER 2020-04-08 18:43 | Emergency (ER) | payer OTHER ==
[~2020-04-08] VITALS: Ht 162.6 cm; Wt 90.7 kg
--- OUTSIDE RECORDS SUMMARY | ~2020-04-08 | XMS | Encounter Summary ---
Demographics + + + | Address | [address] | | | [place] [address] | + + + | Home Phone | | + + + | Preferred Language | Unknown | + + + | Marital Status | | + + + | Samaritan Affiliation | Unknown | + + + | Race | White | + + + | Ethnic Group | Not or | + + + Author + + + | Author | [facility] | | | and [place] | + + + | Organization | [facility] | | | and [place] | [...] Team Providers + +------+ + | Care Communications Controller Name | Role | Phone | + +------+ + | Dixon Morris PA-C | PCP | | + +------+ + Encounter Details +--------+ + + + + | Date | Type | Department | Care Team | Description | +--------+ + + + + | 03/13/ | Orders Only | [facility] | [place], | | | 2018 | | GASTROENTEROLOGY | HAYLIE Huggins [address] | | | | | [address] | [place], | | | | | [place] | [place] [address] | | | | | [address] | [phone] | | | | | [phone] | | | +--------+ + + + [...]
--- OUTSIDE RECORDS SUMMARY | ~2020-04-08 | XMS | Encounter Summary ---
Demographics + + + | Address | [address] | | | [place] [address] | + + + | Home Phone | | + + + | Preferred Language | Unknown | + + + | Marital Status | | + + + | Pentecostal Affiliation | Unknown | + + + | Race | White | + + + | Ethnic Group | Not or | + + + Author + + + | Author | [facility] | | | and [place] | + + + | Organization | [facility] | | | and [...] Team Providers + +------+ + | Care Reporting Consultant Name | Role | Phone | + [...] Provider Unknown | | | [facility] | | | | | | [phone] | (Fax) | | | | | [phone] | | | +--------+ + + + [...]
--- OUTSIDE RECORDS SUMMARY | ~2020-04-08 | XMS | Encounter Summary ---
Demographics + + + | Address | [address] | | | [place] [address] | + + + | Home Phone | | + + + | Preferred Language | Unknown | + + + | Marital Status | | + + + | Jehovah'S Witness Affiliation | Unknown | + + + | Race | White | + + + | Ethnic Group | Not or | + + + Author + + + | Author | [facility] | | | and [place] | + + + | Organization | [facility] | | | [...] Team Providers + +------+ + | Care It Application Support Analyst Name | Role | Phone | + +------+ + PCP | Unavailable | + +------+ + Encounter Details +--------+ + + + + | Date | Type | Department | Care Team | Description | +--------+ + + + + | 07/06/ | Hospital | [facility] GENER[facility] | Conversion | Headache | | 2012 | Encounter | [address] | Transaction, | | | | | [address] | Provider Unknown | | | | | [place] | | | | | | [phone] | (Fax) | | | | | [phone] | | | +--------+ + + + [...] Note | + + | Marcio Soto Conversion - 03/17/2019 8:07 PM PDT This is a non-reportable procedure | | without a radiologist report and isused for image storage only | + + documented in this encounter Visit Diagnoses + + | Diagnosis | + + | Headache(784.0) Headache | + + documented in this encounter"
--- OUTSIDE RECORDS SUMMARY | ~2020-04-08 | XMS | Encounter Summary ---
Demographics + + + | Address | [address] | | | [place] [address] | + + + | Home Phone | | + + + | Preferred Language | Unknown | + + + | Marital Status | | + + + | Taoism Affiliation | Unknown | + + + | Race | White | + + + | Ethnic Group | Not or | + + + Author + + + | Author | [facility] | | | and [place] | + + + | Organization | [facility] | | [...] Team Providers + +------+ + | Care Prepress Proofer Name | Role | Phone | + [...] [place] | | | | | | [phone] | (Fax) | | | | | [phone] | | | +--------+ + + + [...]
--- OUTSIDE RECORDS SUMMARY | ~2020-04-08 | XMS | Encounter Summary ---
Demographics + + + | Address | [address] | | | [place] [address] | + + + | Home Phone | | + + + | Preferred Language | Unknown | + + + | Marital Status | | + + + | Jew Affiliation | Unknown | + + + | Race | White | + + + | Ethnic Group | Not or | + + + Author + + + | Author | [facility] | | | and [place] | + + + | Organization | [facility] [...] Team Providers + +------+ + | Care Central Control Room Operator Name | Role | Phone | + +------+ + PCP | Unavailable | + +------+ + Encounter Details +--------+ + + + + | Date | Type | Department | Care Team | Description | +--------+ + + + + | 07/25/ | Hospital | [facility] | Conversion | Headache | | 2012 | Encounter | [facility] | Transaction, | | | | | CLINICAL DECISION | Provider Unknown | | | | | [address] [facility] | | | | | | [place], [place] | (Fax) | | | | | [address] | Ulysses Sanabria MD [address] | | | | | [phone] | [address] | | | | | | [address] [place], | | | | | | [place] [address] | | | | | | [phone] | | | | | | | [...] Progress Note by Farida Mcmillan RN at 07/25/131818 Author: Farida Mcmillan RN Service: (none) Author Type: Registered Nurse Filed: 07/25/131819 Date of Service: 07/25/131818 Status: Signed Aircraft Engine Technician: Farida Mcmillan RN (Registered Nurse) Pt [...] 07/25/131821 Date of Service: 07/25/131699 Status: Signed Aircraft Engine Technician: Farida Mcmillan RN (Registered Nurse) Nuclear Medicine contacted to get in touch with Deshawn STALLINGS regarding pt headache and pa in medication orders. Will continue to monitor pain status and darken room, decreasing stim ulus. Pt lying flat drinking adequate fluids at this time. Will await further orders docume nted in this encounter Procedure Notes Gustavo Wan ARNP - 07/25/2013 2:39 PM PSTFormatting of this note might be different fr om the original. Procedures by HAYLIE So at 07/25/131438 Author: HAYLIE So Service: (none) Author Type: Advanced Registered Nurse Prac titioner Filed: 07/25/13 1446 Date of Service: 07/25/131438 Status: Signed Aircraft Engine Technician: HAYLIE So (Advanced Registered Nurse Practitioner) Pre-procedure Diagnoses: 1. Headache(784.0) [784.0] Post-procedure Diagnoses: 1. Headache(784.0) [784.0] Procedures: 1. LUMBAR PUNCTURE [PRO88 (Custom)] Diagnostic lumbar puncture under fluoroscopic guidance performed 10 mL of clear, colorless fluid obtained Opening pressure: 8 cmH2O Fluid sent to lab for indicating testing Patient tolerated well, no immediate post procedure complications encountered. See dictation for full details HAYLIE So 07/25/2013 2:40 PM documented in this encounter Plan of Treatment Not [...] | | The possibility of "sound alike" filter plant operator errors, addition | | | and/or deletions may occur. If there is any question about this | | | report please contact the author of the report. Electronically | | | signed by HAYLIE So on 07/25/2013 3:07 PM | | + + + + + | Procedure Note | + + | Marcio Soto Conversion - 03/17/2019 8:07 PM PDT PROCEDUREDiagnostic [...] The possibility of "sound alike" | | filter plant operator errors, addition and/or deletions may occur. If [...] system. The possibility of "sound a like" filter plant operator errors, addition and/or deletions may occur. If [...] | Testing performed at | | | [facility] [place] [address] GRAM STAIN | | | NO WBC'S SEEN | | | NO ORGANISMS SEEN | | | Testing performed at [facility];[address] [place] [address] | | | CULTURE NO GROWTH 3 DAYS | | | Testing performed | | | at [facility], [address] [place] [address] REPORT STATUS | | | 07/29/2013 FINAL [...] EXTERNAL LAB | | Testing performed at [facility];[address] [place] [address];[place] [address] APPEARANCE | | | CLEAR Testing performed at | | | [facility];[address];[place] [address] Tube Number, CSF | | | 3 Testing performed at [facility];[address];[place] [address] CSF RBC | | | 84 High Testing performed at [facility];[address];[place] [address] CSF WBC | | | 3 Testing performed at [facility];[address];[place], [place] | | | [address] | | + + + + +---------+ [...] | EXTERNAL LAB | | performed at [facility];[address] [place] [address];[place] [address] | | + + + + +---------+ [...] EXTERNAL LAB | | Testing performed at [facility];[address] [place] [address];[place] [address] | | + + + + +---------+ [...]
--- OUTSIDE RECORDS SUMMARY | ~2020-04-08 | XMS | Clinical Summary ---
Demographics + + + | Address | [address] | | | [place] [address] | + + + | Home Phone [...] | Organization | [facility] [...] Team Providers + +------+ + | Care Oyster Farmer Name | Role | Phone | + [...] + + Plan of Treatment + + +-------+ + | Health Maintenance | Due Date | Last | Comments | | | | Done | | + + +-------+ + | Vaccine: | | | | | Dtap/Tdap/Td (1 - | 0 | | | | Tdap) | | | | + + +-------+ + | Cervical Cancer | | | | | Screening (Pap) | 2 | | | + + +-------+ + | Vaccine: Influenza | | | | | (#1) | 0 | | | + + +-------+ + Results Not on filefrom Last 3 Months
--- OUTSIDE RECORDS SUMMARY | ~2020-04-08 | XMS | Encounter Summary ---
Demographics + + + | Address | [address] | | | [place] [address] | + + + | Home Phone | | + + + | Preferred Language | Unknown | + + + | Marital Status | | + + + | Mormonism Affiliation | Unknown | + + + | Race | White | + + + | Ethnic Group | Not or | + + + Author + + + | Author | [facility] | | | and [place] | + + + | Organization | [facility] | | [...] Team Providers + +------+ + | Care Ham Pumper Name | Role | Phone | + [...] [place] | | | | | | [phone] | (Fax) | | | | | [phone] | | | +--------+ + + + [...]
== END 2020-04-08 19:34 | disposition home or self-care (01) ==
LOC: ED 18:43
DX: S46.812A Strain of other muscles, fascia and tendons at shoulder and upper arm level, left arm, initial encounter (principal); X58.XXXA Exposure to other specified factors, initial encounter; J45.909 Unspecified asthma, uncomplicated; F17.200 Nicotine dependence, unspecified, uncomplicated; Z88.6 Allergy status to analgesic agent; Z88.5 Allergy status to narcotic agent; Z88.0 Allergy status to penicillin
CPT/HCPCS: 73080; 99283-25

== ENCOUNTER 2020-06-22 19:05 | Emergency (ER) | payer OTHER ==
[~2020-06-22] VITALS: Ht 160 cm; Wt 103.9 kg
[2020-06-22] MEDS ORDERED: ONDANSETRON ODT4 MG PO (22:30)
--- NOTE | 2020-06-24 13:09 | EKG ---
[facility] [address] [facility] [place], [place] [address] Signed Normal sinus rhythm with sinus arrhythmia Normal ECG When compared with ECG of 25-JUN-2019 01:16, No significant change was found Confirmed by SANDRA VILLAGOMEZ DO ([id number]) on 06/24/2020 1:09:24 PM Electronically Signed By: SANDRA VILLAGOMEZ DO 06/24/20 1309 PATIENT NAME: YON WALTON Electrocardiogram DATE OF : [birth year] PHYSICIAN: SANDRA VILLAGOMZE DO REPORT #: [id number] REPORT IS CONFIDENTIAL AND NOT TO BE RELEASED WITHOUT AUTHORIZATION
== END 2020-06-22 22:34 | disposition home or self-care (01) ==
LOC: ED 19:05
DX: R07.9 Chest pain, unspecified (principal); R10.9 Unspecified abdominal pain; J45.909 Unspecified asthma, uncomplicated; F17.200 Nicotine dependence, unspecified, uncomplicated; Z88.0 Allergy status to penicillin; Z88.5 Allergy status to narcotic agent; Z88.6 Allergy status to analgesic agent
CPT/HCPCS: 71046; 76705; 80053; 81001; 83690; 84484; 84703; 85025; 93005; 93010; 99285-25; J2270; J2405; J7121

== ENCOUNTER 2020-08-01 16:03 | Emergency (ER) | payer OTHER ==
[~2020-08-01] VITALS: Ht 160 cm; Wt 103.9 kg
[~2020-08-01 16:03] MED LIST changes: +ONDANSETRON ODT4 MG PO
[2020-08-01] MEDS ORDERED: PREDNISONE20 MG PO (17:46)
[2020-08-01] MEDS ORDERED: IPRAT-ALBUT 0.5-3 ML INH (17:47)
[2020-08-01] MEDS ORDERED: FAMOTIDINE40 MG PO (17:48)
[2020-08-01] MEDS ORDERED: TESSALON PERLE100 MG PO (18:19)
[2020-08-01] MEDS ORDERED: NORCO 5-325 TA1 EACH PO (18:19)
== END 2020-08-01 18:24 | disposition home or self-care (01) ==
LOC: ED 16:03
DX: M54.5 Low back pain (principal); J06.9 Acute upper respiratory infection, unspecified; J45.909 Unspecified asthma, uncomplicated; F17.200 Nicotine dependence, unspecified, uncomplicated; Z88.0 Allergy status to penicillin; Z88.5 Allergy status to narcotic agent; Z88.6 Allergy status to analgesic agent; Z79.899 Other long term (current) drug therapy; Z79.52 Long term (current) use of systemic steroids
CPT/HCPCS: 72131; 99283-25; J1100

== ENCOUNTER 2020-09-02 09:28 | Emergency (ER) | payer OTHER ==
[~2020-09-02] VITALS: Ht 160 cm; Wt 103.9 kg
[~2020-09-02 09:28] MED LIST changes: +FAMOTIDINE40 MG PO; +TESSALON PERLE100 MG PO
== END 2020-09-02 11:52 | disposition home or self-care (01) ==
LOC: ED 09:28
DX: S81.812A Laceration without foreign body, left lower leg, initial encounter (principal); S93.402A Sprain of unspecified ligament of left ankle, initial encounter; W55.32XA Struck by other hoof stock, initial encounter; J45.909 Unspecified asthma, uncomplicated; F17.200 Nicotine dependence, unspecified, uncomplicated; Z88.5 Allergy status to narcotic agent; Z88.6 Allergy status to analgesic agent; Z88.0 Allergy status to penicillin; Z79.899 Other long term (current) drug therapy
CPT/HCPCS: 12002; 73610; 90471; 90715; 99283-25

== ENCOUNTER 2020-10-07 11:44 | Emergency (ER) | payer OTHER ==
[~2020-10-07] VITALS: Ht 162.6 cm; Wt 99.3 kg
== END 2020-10-07 14:45 | disposition home or self-care (01) ==
LOC: ED 11:44
DX: R10.11 Right upper quadrant pain (principal); J45.909 Unspecified asthma, uncomplicated; F17.200 Nicotine dependence, unspecified, uncomplicated; Z88.0 Allergy status to penicillin; Z88.5 Allergy status to narcotic agent; Z79.899 Other long term (current) drug therapy; Z90.49 Acquired absence of other specified parts of digestive tract; Z90.721 Acquired absence of ovaries, unilateral
CPT/HCPCS: 76705; 80053; 81001; 83690; 83735; 85025; 96374; 99284-25; J2405

== ENCOUNTER 2020-12-05 13:31 | Emergency (ER) | payer OTHER ==
[~2020-12-05] VITALS: Ht 162.6 cm; Wt 99.8 kg
[2020-12-05] MEDS ORDERED: PREDNISONE50 MG PO (13:50)
[2020-12-05] MEDS ORDERED: PULMICORT FLEX90 MCG INH (13:51)
[2020-12-05] MEDS ORDERED: ZITHROMAX250 MG PO (15:39)
== END 2020-12-05 15:46 | disposition home or self-care (01) ==
LOC: ED 13:31
DX: J40 Bronchitis, not specified as acute or chronic (principal); Z20.822 Contact with and (suspected) exposure to COVID-19; J45.909 Unspecified asthma, uncomplicated; F17.200 Nicotine dependence, unspecified, uncomplicated; Z88.0 Allergy status to penicillin; Z88.5 Allergy status to narcotic agent; Z88.6 Allergy status to analgesic agent; Z79.899 Other long term (current) drug therapy; Z79.52 Long term (current) use of systemic steroids
CPT/HCPCS: 71045; 94640; 99285-25; C9803; U0003

== ENCOUNTER 2021-01-31 02:52 | Emergency (ER) | payer OTHER ==
[~2021-01-31] VITALS: Ht 162.6 cm; Wt 99.8 kg
[~2021-01-31 02:52] MED LIST changes: +PREDNISONE50 MG PO; +PULMICORT FLEX90 MCG INH
[2021-01-31] MEDS ORDERED: CEPHALEXIN500 MG PO (03:33)
[2021-01-31] MEDS ORDERED: HYDROCODON-ACE1 EA10 PO ×2 (03:33→04:13)
[2021-01-31] MEDS ORDERED: DICLOFENAC SODI75 MG PO (04:13)
== END 2021-01-31 04:36 | disposition home or self-care (01) ==
LOC: ED 02:52
DX: S39.012A Strain of muscle, fascia and tendon of lower back, initial encounter (principal); S29.012A Strain of muscle and tendon of back wall of thorax, initial encounter; V49.40XA Driver injured in collision with unspecified motor vehicles in traffic accident, initial encounter; J45.909 Unspecified asthma, uncomplicated; F17.200 Nicotine dependence, unspecified, uncomplicated; Z88.0 Allergy status to penicillin; Z88.5 Allergy status to narcotic agent; Z88.6 Allergy status to analgesic agent
CPT/HCPCS: 71101; 72100; 99284-25

== ENCOUNTER 2021-02-03 17:03 | Emergency (ER) | payer OTHER ==
[~2021-02-03] VITALS: Ht 162.6 cm; Wt 99.8 kg
[~2021-02-03 17:03] MED LIST changes: +DICLOFENAC SODI75 MG PO; +HYDROCODON-ACE1 EA10 PO
[2021-02-03] MEDS ORDERED: PREDNISONE20 MG PO (19:44)
[2021-02-03] MEDS ORDERED: CYCLOBENZAPRINE10 MG PO (19:44)
== END 2021-02-03 20:46 | disposition home or self-care (01) ==
LOC: ED 17:03
DX: S39.012A Strain of muscle, fascia and tendon of lower back, initial encounter (principal); V49.9XXA Car occupant (driver) (passenger) injured in unspecified traffic accident, initial encounter; J45.909 Unspecified asthma, uncomplicated; F17.200 Nicotine dependence, unspecified, uncomplicated; Z88.0 Allergy status to penicillin; Z88.5 Allergy status to narcotic agent; Z88.6 Allergy status to analgesic agent
CPT/HCPCS: 81001; 99283; J7512

== ENCOUNTER 2021-02-09 23:53 | Emergency (ER) | payer OTHER ==
[~2021-02-09] VITALS: Ht 162.6 cm; Wt 94.3 kg
[~2021-02-09 23:53] MED LIST changes: +CYCLOBENZAPRINE10 MG PO
[2021-02-10] MEDS ORDERED: OXYCODON-ACETA1 EAC2 PO (00:05)
[2021-02-10] MEDS ORDERED: STOOL SOFTENER1 EACH PO (00:05)
[2021-02-10] MEDS ORDERED: LIDOCAINE1 EACH TD (00:06)
[2021-02-10] MEDS ORDERED: DIAZEPAM2 MG PO (00:06)
[2021-02-10] MEDS ORDERED: NARCAN4 MG MM (00:07)
[2021-02-10] MEDS ORDERED: CEFPODOXIME PR200 MG PO (00:26)
== END 2021-02-10 00:41 | disposition home or self-care (01) ==
LOC: ED 23:53
DX: H66.92 Otitis media, unspecified, left ear (principal); J45.909 Unspecified asthma, uncomplicated; F17.200 Nicotine dependence, unspecified, uncomplicated; Z88.0 Allergy status to penicillin; Z88.5 Allergy status to narcotic agent; Z88.6 Allergy status to analgesic agent; Z79.899 Other long term (current) drug therapy
CPT/HCPCS: 99282

== ENCOUNTER 2021-03-05 00:27 | Emergency (ER) | payer OTHER ==
[~2021-03-05] VITALS: Ht 162.6 cm; Wt 94.3 kg
[~2021-03-05 00:27] MED LIST changes: +CEFPODOXIME PR200 MG PO; +DIAZEPAM2 MG PO; +LIDOCAINE1 EACH TD; +NARCAN4 MG MM; +OXYCODON-ACETA1 EAC2 PO; +STOOL SOFTENER1 EACH PO
== END 2021-03-05 02:28 | disposition home or self-care (01) ==
LOC: ED 00:27
DX: M54.5 Low back pain (principal); J45.909 Unspecified asthma, uncomplicated; F17.200 Nicotine dependence, unspecified, uncomplicated; Z88.0 Allergy status to penicillin; Z88.5 Allergy status to narcotic agent; Z88.6 Allergy status to analgesic agent; Z79.899 Other long term (current) drug therapy
CPT/HCPCS: 99283

== ENCOUNTER 2021-04-06 00:09 | Emergency (ER) | payer OTHER ==
[~2021-04-06] VITALS: Ht 162.6 cm; Wt 91.6 kg
[2021-04-06] MEDS ORDERED: METHOCARBAMOL500 MG PO (00:33)
[2021-04-06] MEDS ORDERED: ONDANSETRON ODT8 MG PO (01:09)
== END 2021-04-06 01:24 | disposition home or self-care (01) ==
LOC: ED 00:09
DX: U07.1 COVID-19 (principal); J45.909 Unspecified asthma, uncomplicated; F17.200 Nicotine dependence, unspecified, uncomplicated; Z88.0 Allergy status to penicillin; Z88.5 Allergy status to narcotic agent; Z88.6 Allergy status to analgesic agent; Z79.899 Other long term (current) drug therapy
CPT/HCPCS: 71045; 99284-25

== ENCOUNTER 2021-05-05 20:06 | Emergency (ER) | payer OTHER ==
[~2021-05-05] VITALS: Ht 162.6 cm; Wt 91.6 kg
[~2021-05-05 20:06] MED LIST changes: +METHOCARBAMOL500 MG PO; +ONDANSETRON ODT8 MG PO
== END 2021-05-05 22:11 | disposition home or self-care (01) ==
LOC: ED 20:06
DX: S90.31XA Contusion of right foot, initial encounter (principal); W22.8XXA Striking against or struck by other objects, initial encounter; F17.200 Nicotine dependence, unspecified, uncomplicated; J45.909 Unspecified asthma, uncomplicated; Z88.0 Allergy status to penicillin; Z88.5 Allergy status to narcotic agent; Z88.6 Allergy status to analgesic agent; Z79.899 Other long term (current) drug therapy
CPT/HCPCS: 73630; 99283

== ENCOUNTER 2021-06-22 03:25 | Emergency (ER) | payer OTHER ==
[~2021-06-22] VITALS: Ht 162.6 cm; Wt 9171.6 kg
[2021-06-22] MEDS ORDERED: DICLOFENAC POTA25 MG PO (03:41)
== END 2021-06-22 04:05 | disposition home or self-care (01) ==
LOC: ED 03:25
DX: M54.50 Low back pain, unspecified (principal); J45.909 Unspecified asthma, uncomplicated; F17.200 Nicotine dependence, unspecified, uncomplicated; Z88.0 Allergy status to penicillin; Z88.5 Allergy status to narcotic agent; Z88.6 Allergy status to analgesic agent; Z79.899 Other long term (current) drug therapy
CPT/HCPCS: 99283

== ENCOUNTER 2021-08-03 00:34 | Emergency (ER) | payer OTHER ==
[~2021-08-03] VITALS: Ht 162.6 cm; Wt 98.4 kg
[~2021-08-03 00:34] MED LIST changes: +DICLOFENAC POTA25 MG PO
[2021-08-03] MEDS ORDERED: NEURONTIN300 MG PO (00:50)
[2021-08-03] MEDS ORDERED: CYCLOBENZAPRINE10 MG PO (00:50)
[2021-08-03] MEDS ORDERED: CLEOCIN HCL300 MG PO (02:20)
== END 2021-08-03 02:37 | disposition home or self-care (01) ==
LOC: ED 00:34
DX: G89.18 Other acute postprocedural pain (principal); K08.89 Other specified disorders of teeth and supporting structures; J45.909 Unspecified asthma, uncomplicated; F17.200 Nicotine dependence, unspecified, uncomplicated; Z88.0 Allergy status to penicillin; Z88.6 Allergy status to analgesic agent; Z88.5 Allergy status to narcotic agent; Z79.899 Other long term (current) drug therapy
CPT/HCPCS: 64400; 99282-25

== ENCOUNTER 2021-10-18 00:52 | Emergency (ER) | payer OTHER ==
[~2021-10-18] VITALS: Ht 160 cm; Wt 96.2 kg
[~2021-10-18 00:52] MED LIST changes: +CLEOCIN HCL300 MG PO; +NEURONTIN300 MG PO
[2021-10-18] MEDS ORDERED: AZITHROMYCIN250 MG PO (01:02)
[2021-10-18] MEDS ORDERED: FLUTICASONE-SA1 EAC3 INH (01:03)
[2021-10-18] MEDS ORDERED: ONDANSETRON ODT4 MG PO (03:03)
[2021-10-18] MEDS ORDERED: BENZONATATE100 MG PO (03:03)
[2021-10-18] MEDS ORDERED: PREDNISONE20 MG PO (03:03)
== END 2021-10-18 03:11 | disposition home or self-care (01) ==
LOC: ED 00:52
DX: J40 Bronchitis, not specified as acute or chronic (principal); Z20.822 Contact with and (suspected) exposure to COVID-19; F17.200 Nicotine dependence, unspecified, uncomplicated; Z88.0 Allergy status to penicillin; Z88.5 Allergy status to narcotic agent; Z88.6 Allergy status to analgesic agent; Z79.899 Other long term (current) drug therapy
CPT/HCPCS: 36415; 71045; 80053; 85025; 94640; 96374; 96375; 99283-25; C9803; J1100; J2405; J7030; U0003

== ENCOUNTER 2021-12-15 02:23 | Inpatient (IN) | payer OTHER ==
[~2021-12-15] VITALS: Ht 160 cm; Wt 95.6 kg
--- NOTE | ~2021-12-15 | OR ---
[facility] [address] [place], [place] [address] Draft DATE OF OPERATION: 12/16/2021 SURGEON: Armida Underwood MD PREOPERATIVE DIAGNOSIS: Acute acalculous cholecystitis. POSTOPERATIVE DIAGNOSIS: Acute acalculous cholecystitis with dense omental adhesions. PROCEDURES: 1. Laparoscopic cholecystectomy with intraoperative cholangiogram. 2. Surgeon-directed fluoroscopy. ANESTHESIA: General endotracheal, Anu Vince, PIECER and local 10 mL of 0.25% Marcaine with epinephrine. INDICATION: This 31-year-old white woman was admitted late in the night on December 15, 2021 with severe right upper abdominal pain radiating to the subscapular area. She had been seen in the past for the same thing. A gallbladder ultrasound was performed which showed no sign of stones. Liver enzymes were normal. She was admitted with probable acalculous cholecystitis. She has been treated with antibiotics IV fluids and so forth. A CCK-HIDA test was performed yesterday which demonstrated marked reproduction of her symptoms with injection of the CCK and a diminished ejection fraction, not severely so. She is admitted at this time to undergo cholecystectomy preferred by laparoscopic approach for acute acalculous cholecystitis. She understands the risks of bleeding, infection, bile duct injury, need for open procedure and most importantly failure to cure her symptoms. Understand that she wished to proceed. FINDINGS: The gallbladder is densely adherent to the omentum. The gallbladder was chronically and subacutely inflamed. Once excised, there was a small polyp of the gallbladder but no stones. Cholangiogram was normal. Liver appeared normal. There were no other findings of concern. DESCRIPTION OF PROCEDURE: The patient was brought to the operating room, given a general endotracheal anesthetic. She had been on Ancef antibiotic. The abdomen was prepared with chlorhexidine solution PATIENT NAME: YON WALTON OPERATIVE REPORT DATE OF : [birth year] REPORT #: [id number] PHYSICIAN: ARMIDA UNDERWOOD MD PCP: ARCENIO CORADO MD REPORT IS CONFIDENTIAL AND NOT TO BE RELEASED WITHOUT AUTHORIZATION [facility] [address] [place], [place] [address] Draft and draped sterilely. An infraumbilical incision was made; a previous circumumbilical incision inferiorly was noted from prior laparoscopic appendectomy. The abdomen was entered using open Whitney cannula technique, pneumoperitoneum was achieved to a level of 14 mmHg of carbon dioxide gas. Intra-abdominal inspection showed no sign of ascites or carcinomatosis. The gallbladder was completely obscured from view. The liver appeared normal. Three additional trocars were placed in usual configuration in the subxiphoid, right midclavicular, and right anterior axillary line. Elevation of the omentum allowed for dissection including electrocautery, ultimately identifying the apex of the gallbladder. This was grasped and elevated cephalad. Further dissection was undertaken of the omental adhesions from the gallbladder itself. Meticulous care was taken to avoid bleeding or entry to other organs. The gallbladder once fully freed up, was elevated cephalad and retracted laterally and using blunt and electrocautery dissection. The triangle of Calot was dissected free. Once the triangle of Calot was well demonstrated a clip was applied across gallbladder cystic duct junction and transverse choledochotomy made the cystic duct. Using the Tuniu type cholangiocatheter system, intraoperative cholangiography was undertaken with surgeon directed fluoroscopy. Free flow of contrast was noted. The biliary tree with prompt emptying into the duodenum. There was no sign of filling defect or anomaly. Catheter was removed. The cystic duct was triply clipped and divided. The gallbladder dissected free in a retrograde fashion using electrocautery. Gallbladder explanted through the infraumbilical port site opened on the back table and found to have chronic and subacute inflammation of mucosa in a small polyp as well. There was no sign of cancer. Irrigation was undertaken in subhepatic space. There was no sign of bile leak, bleeding or other problems. The trocars removed under direct visualization showing no sign of bleeding. The infraumbilical fascial incision was reapproximated with interrupted 0 Vicryl suture. A 10 mL of 0.25% Marcaine with epinephrine injected locally. Skin was closed with interrupted 3-0 Vicryl. Steri-Strips were applied. The patient tolerated the procedure well. BLOOD LOSS: Minimal. COMPLICATIONS: None. Armida Underwood MD PATIENT NAME: YON WALTON OPERATIVE REPORT DATE OF : [birth year] REPORT #: [id number] PHYSICIAN: ARMIDA UNDERWOOD MD PCP: ARCENIO CORADO MD REPORT IS CONFIDENTIAL AND NOT TO BE RELEASED WITHOUT AUTHORIZATION [address] [address] Draft /MALAIKAL /[id number] cc: MD Arcenio Ocasio MD Copies: HORACIO KU MD, MALCOLM MD ~ PATIENT NAME: YON WALTON OPERATIVE REPORT DATE OF : [birth year] REPORT #: [id number] PHYSICIAN: ARMIDA UNDERWOOD MD PCP: ARCENIO CORADO MD REPORT IS CONFIDENTIAL AND NOT TO BE RELEASED WITHOUT AUTHORIZATION
--- NOTE | ~2021-12-15 | HP ---
[facility] [address] [place], [place] [address] Draft ADMISSION DATE: 12/15/2021 REASON FOR ADMISSION: Probable acalculous cholecystitis. HISTORY OF PRESENT ILLNESS: This 31-year-old white woman, who has had several days of increasing right upper abdominal pain radiating to the right subscapular area. She presented to the emergency room and was evaluated by Dr. Ku. An ultrasound was performed, which showed tenderness in the right upper quadrant of the gallbladder was considered to be normal without signs of stones, thickening, hydrops, or pericholecystic fluid. Given her rather classic and typical symptoms of acute cholecystitis, she is admitted for further evaluation and care. Her past medical history is notable for hysterectomy as well as right ovarian cystectomy. A consultation note is noted in the chart, right lower abdominal pain in November of 2013, at which time she underwent laparoscopy, appendectomy, and ovarian cystectomy. Her current symptoms are that her right subcostal pain worse with food and radiating into the subscapular area on the right side. Lab studies are unremarkable with white count of only 10.8 and a Chem-profile, which was essentially normal. She is uncertain of any family history of biliary disease. The COVID test is negative. REVIEW OF SYSTEMS: She denies any shortness of breath or chest pain. She has had no dysphagia or dysuria. Denies any hematemesis or blood per rectum. SOCIAL HISTORY: She is . She has three children. She lives in [place]. She is on the [employer]. PHYSICAL EXAMINATION: GENERAL: Somewhat obese white woman, who looks to be in moderate discomfort at this time. VITAL SIGNS: Temperature is 97.7, pulse 72, blood pressure 97/60, and O2 saturation 95% on room air. NECK: Trachea is midline. Mucous membranes are slightly dry. CHEST: Clear. HEART: Regular, without murmur. ABDOMEN: Obese, but soft. There are some laparoscopic scars from the past. She has mild tenderness in the right subcostal area. There is no mass. She has no ascites. PATIENT NAME: YON WALTON HISTORY AND PHYSICAL DATE OF : [birth year] REPORT #: [id number] PHYSICIAN: ARMIDA UNDERWOOD MD PCP: DEB CORADO MD REPORT IS CONFIDENTIAL AND NOT TO BE RELEASED WITHOUT AUTHORIZATION [facility] [address] [place], [place] [address] Draft EXTREMITIES: Show no clubbing, cyanosis, or edema. LABORATORY DATA: White count is 10.8, hematocrit 43.3, and platelets are 246,000. Chem profile is normal. Creatinine is 0.74. Urinalysis is normal. Beta-hCG is negative (tested despite hysterectomy). IMAGING DATA: Review of ultrasound results and images was undertaken; the liver is noted as normal. The right kidney appears normal. The posterior wall of the gallbladder is about 1 mm and visualized. There is no evidence of stones or shadowing. ASSESSMENT AND PLAN: Her clinical picture is highly consistent with acute cholecystitis despite the ultrasound and other findings. We will see if a CCK-HIDA test can be arranged for today. Acalculous cholecystitis would be a high likelihood for which cholecystectomy would be recommended generally. If this is normal, then consideration might be made for upper endoscopy to assess for peptic disease. Discussed all this with the patient in detail. MD KRISTI Lopez/JAMAAL /[id number] cc: Horacio Ku MD Copies: HORACIO KU MD ~ PATIENT NAME: YON WALTON HISTORY AND PHYSICAL DATE OF : [birth year] REPORT #: [id number] PHYSICIAN: ARMIDA UNDERWOOD MD PCP: DEB CORADO MD REPORT IS CONFIDENTIAL AND NOT TO BE RELEASED WITHOUT AUTHORIZATION
[~2021-12-15 02:23] MED LIST changes: +FLUTICASONE-SA1 EAC3 INH
[2021-12-15] MEDS ORDERED: HYDROXYZINE HCL25 MG PO (02:39)
--- NOTE | 2021-12-15 04:30 | NUR ---
PT ADMITTED TO ROOM 108 FROM ED, INDEPENDENTLY TRANSFERED FROM STRETCHER TO BED, DENIED NEED TO USE BATHROOM. ONCE IN BED, PT REMOVED HER UPPER DENTURE, WANTED IT TO BE "HIDDEN", PLACED IN BATHROOM. A/O, ROOM AIR. LIVES WITH , HE IS AWARE SHE IS HERE, STATED HE IS BRINGING HER DAUGHTER IN TO SEE HER, AGE 12, EXPLAINED VISITATION POLICY, DISAPPOINTED BUT UNDERSTANDING.
--- NOTE | 2021-12-15 04:37 | NUR ---
TELEPHONE REPORT OBTAINED FROM SHIRA BROCK RN
--- NOTE | 2021-12-15 05:37 | NUR ---
pt admitted from ed at 0430am from ED via stretcher. alert and oriented, cooperative with assessment. On room air, no sob noted with exertion, exp wheezing upper lobes and crackles and dim at bases. Pt stated she has asthma and uses DMI inhavelers and currently they are in her bag. MD to assess later today and pt mmay benefit from [facility] tx. CDB, IS given. pt turns and repositions self in bed. c/o RQ pain that goes to her back and shoulders. warm blanket given at this time and will give her a fan on her requests. pleasant, orineted to room and procedures. IVF started.
--- NOTE | 2021-12-15 06:38 | NUR ---
C/O ABD RQ PAIN AND BACK PAIN, MEDICATED WITH DILAUDID 0.5MG IV.
--- NOTE | 2021-12-15 06:41 | NUR ---
UP TO BR WITH MINIMUM OF ASSIST
--- NOTE | 2021-12-15 08:00 | NUR ---
REPORT RECEIVED FROM [employer] SALES REPRESENTATIVE RN. PT LYING IN BED WITH IVF INFUSING. CALL LIGHT WITHIN REACH. WILL CONT TO MONITOR.
[2021-12-15] MEDS ORDERED: FLUTICASONE-SA1 EAC3 INH (08:25)
[2021-12-15] MEDS ORDERED: ONDANSETRON ODT8 MG PO (08:26)
--- NOTE | 2021-12-15 09:00 | NUR ---
ASSESSMENT COMPLETED. PRN PAIN MEDICATION ADMINISTERED PER ORDERS- SEE EMAR FOR ADMINISTRATION INFO. DR. UNDERWOOD IN TO TALK TO PT THIS MORNING- NEW ORDERS RECEIVED. PT UP TO BR W/ SBA. VERBALIZES NEEDS APPROPRIATELY. VSS. CALL LIGHT WITHIN REACH. WILL CONT TO MONITOR.
--- NOTE | 2021-12-15 09:36 | NUR ---
PATIENT SITTING UP IN BED. VITALS AND I&O'S CHARTED. PATIENT REQUESTING FRESH LEMON SWABS, FRESH LEMON SWABS GIVEN. CALL LIGHT IN REACH. NO FURTHER NEEDS AT THIS TIME.
--- NOTE | 2021-12-15 10:26 | NUR ---
PT REFUSED SHOWER TODAY, STATES SHE IS IN TOO MUCH PAIN. PROVIDED WARM BLANKETS
--- NOTE | 2021-12-15 10:54 | NUR ---
MED REC COMPLETE
--- NOTE | 2021-12-15 13:00 | NUR ---
Awake in room- sitting on bed. Pt has been talking on her phone. Verbalizes needs appropriately. Call light within reach. Up to BR with SBA. Tolerating ivf as ordered. VSS. Will cont to monitor.
--- NOTE | 2021-12-15 13:00 | NUR ---
I was able to visit shravan Brody today regarding her care while here in the hospital. When arriving in the room it appeared as Mary Grace was quite painful as she was setting up in bed, holding her abdomen, and rocking forward and back. She shares that she is painful but is unble to receive more pain medications until after they complete her study scheduled for 1600. She is going to shower to try to help alleviate the pain. Mary Grace feels that her care has been good while here in the hospital. She states that she understands her medications, and that the nurses are explaining her treatment plan to her. She denies complaints or questions at this time. She also denies other needs at this time.
--- NOTE | 2021-12-15 13:23 | NUR ---
PATIENT SITTING UP ON BED. VITALS AND I&O'S CHARTED. CALL LIGHT IN REACH. NO FURTHER NEEDS AT THIS TIME.
--- NOTE | 2021-12-15 15:49 | NUR ---
Pt is resting in bed. Call light at hand. VSS. Tolerating ivf. Will cont to monitor.
--- NOTE | 2021-12-15 19:49 | NUR ---
REPORT RECIEVED FROM DAY SHIFT RN. PT LYING IN BED ALERT AND ORIENTED. TEARY. REPORTS ABD PAIN 02/01. REQUESTING FOOD AND WATER. C/O PAIN IN LEFT HAND IV. IV DC'D WNL. TIP INTACT. 20G STARTED IN RIGHT FOREARM. PT CECILIA WELL. IVF INFUSING WNL. PRN FOR PAIN ADMIN PER EMAR. CLEAR LIQUIDS PROVIDED. SURGICAL CONSENT SIGNED/WITNESSED AND PLACED ON CHART. PT DENIES QUESTIONS OR CONCERNS. WHITE BOARD UPDATED. CALL LIGHT IN REACH.
--- NOTE | 2021-12-15 22:18 | NUR ---
PT UP TO BR TO VOID. BACK TO BED. REPORTS PAIN 02/01. PRN FOR PAIN ADMIN PER EMAR. PT REQUESTING JELLO. PROVIDED. SCD'S AND CPOX IN PLACE. FAMILY IN ROOM. NO FURTHER NEEDS.
--- NOTE | 2021-12-15 23:19 | NUR ---
PT UP TO BATHROOM AND BACK TO BED WITH SBA. PT TOLERATED WELL. THERMOSTAT INCREASED PER PT REQUEST. PT DENIES FURTHER NEEDS AT THIS TIME. CALL LIGHT IN REACH.
--- NOTE | 2021-12-16 00:19 | NUR ---
CALL LIGHT ANSWERED. SBA. PATIENT USED THE BATHROOM AND VOIDED 450 ML. PATIENT IS BACK IN BED. PATIENT STATED WOULD LOVE TO HAVE SOMETHING FOR NAUSEA. POULTRY EVISCERATOR RUTH NOTIFIED DUE TO PRIMARY RN WAS WITH OTHER PATIENT.
--- NOTE | 2021-12-16 01:03 | NUR ---
PT DOZING ON AND OFF. REPORTS ABD PAIN 6/10 AND NAUSEA. PRN FOR PAIN AND NAUSEA ADMIN PER EMAR. PT NPO. IVF INFUSING WNL. NO FURTHER NEEDS.
--- NOTE | 2021-12-16 01:57 | NUR ---
PATIENT CALLED. SBA. PATIENT USED THE BATHROOM. PATIENT IS BACK IN BED. NO FURTHER NEEDS AT THIS TIME. SCD'S ON.
--- NOTE | 2021-12-16 02:45 | NUR ---
PT RESTING IN BED WITH EYES CLOSED. RESPIRATIONS EVEN. CALL LIGHT IN REACH.
--- NOTE | 2021-12-16 04:22 | NUR ---
CALL LIGHT ANSWERED. PT REPORTS ABD PAIN 01/02. PRN FOR PAIN ADMIN PER EMAR. NO
--- NOTE | 2021-12-16 06:04 | NUR ---
PT UP TO BR TO VOID. SITTING IN RECLINER UPON ENTERING ROOM. REPORTS NAUSEA. DISCUSSED IT WAS TOO EARLY FOR PRN NAUSEA AT THIS TIME. PT STATES "IT'S MORE LIKE HEARTBURN." DISCUSSED SCHEDULED PEPCID. PT STATES "ACTUALLY I THINK I'M JUST BORED." OFFERED TO CALL MD FOR ADDITIONAL PRN N/V. PT DECLINED. BACK TO BED. REPORTS ABD PAIN 01/02. PRN FOR PAIN ADMIN PER EMAR. PT EXPRESSED SHE WAS NERVOUS ABOUT UPCOMING PROCEDURE. COMFORT PROVIDED. PT DOZING ON AND OFF DURING CONVERSATION, LEFT TO REST. CALL LIGHT IN RECH.
--- NOTE | 2021-12-16 07:15 | NUR ---
REPORT RECIEVED FROM KATHY RN, PT RESTING IN BED AT THIS TIME BREATHING EQUAL AND UNLABORED. CALL LIGHT IN REACH.
--- NOTE | 2021-12-16 08:40 | NUR ---
SCHEDULED MEDS ADMINISTER, PT REQUEST PRN DILAUDID, 6/10 PAIN, GIVEN. PT RESTING IN BED ON PHONE. A + O, IV WNL, HRR, WHEEZES IN BILATERIAL LOBES. ABD SOFT, BOWEL TONES ACTIVE. SKIN DRY AND INTACT. WILL CONTINUE PLAN OF CARE. CALL LIGHT IN REACH.
--- NOTE | 2021-12-16 09:43 | NUR ---
PATIENT SITTING UP IN BED AT THIS TIME. TOY ASSEMBLER IN TO DO VITALS. THIS MACHINIST/MACHINE BUILDER IN TO CHECK ON PATIENT AND CHART VITALS AND I&O'S. CALL LIGHT IN REACH. NO FURTHER NEEDS AT THIS TIME.
--- NOTE | 2021-12-16 11:40 | NUR ---
Pt requests PRN dilaudid for 7/10 pain to ABD. Pt showered and back to bed, IVF infusing WNL. Pt states no further needs at this time.
--- NOTE | 2021-12-16 13:50 | NUR ---
Rounded on patient and prepared to leave for procedure.
--- NOTE | 2021-12-16 13:59 | NUR ---
PATIENT UP TO BATHROOM AND BACK TO BED, INDEPENDENT. FAMILY IN ROOM. VITALS AND I&O'S CHARTED. CALL LIGHT IN REACH. NO FURTHER NEEDS AT THIS TIME.
--- NOTE | 2021-12-16 15:54 | NUR ---
12/16/21 1554 Sheets,Beth 1543 PT ARRIVED TO PACU ON 6L VIA MASK, PT NONAROUSABLE AND ORAL AIRWAY IN PLACE. VSS. JAW THRUST USED OFF AND ON TO MAINTAIN AIRWAY. 155 PT WAKES TO PAINFUL STIMULI AND ORAL AIRWAY REMOVED. PT EASILY FALLS BACK TO SLEEP. 1551 PT REACHING FOR HER FACE AND GRABBING O2 MASK, O2 REMOVED. PT FALLS BACK TO SLEEP AND LARGE AMOUNT OF SNORING NOTED.
--- NOTE | 2021-12-16 16:59 | NUR ---
Pt arrives to med surg from PACU. Drowsy, oriented, falls asleep after answering questions. 3x lap sites with sutures and steri strips. CPOX in place, pt on 2L NC O2 at 96%, VSS. IVF infusing WNL.
--- NOTE | 2021-12-16 17:07 | NUR ---
Pt states "allergy to toradol", coded as allergy in EMAR. This RN DC'd order for toradol, charger notified
--- NOTE | 2021-12-16 19:54 | NUR ---
PT IV ALARMING, IV WNL, RESTARTED. PT ASKING ABOUT PAIN MEDICATIONS, WILL REPORT TO PRIMARY RN. ASKED IF PT WAS DONE WITH HER MEAL, PT GAVE REST FOOD TO HER DAUGHTER.
--- NOTE | 2021-12-16 20:16 | NUR ---
RECEIVED REPORT FROM DAYSHIFT NURSE. PATIENT AWAKE RESTING IN BED EATING. NO FURTHER NEEDS NOTED. CALL LIGHT WITHIN REACH
--- NOTE | 2021-12-16 21:10 | NUR ---
PATIENT ASSESSMENT COMPLETED. VITALS TAKEN AND RECORDED. INTAKE AND OUTPUT RECORDED. SCHEDULED MEDICATIONS GIVEN PER ORDER. PATIENT RATES PAIN IN ABD AT 8/10, PRN PAIN MEDICATION GIVEN PER ORDER. PATIENT TITRATED TO ROOM AIR, CPOX IN USE. IV INFUSING PER ORDER, SCD'S IN USE. X4 LAP SITES, DRAINAGE NOTED, REINFORCED MID-UPPER ABD LAP SITE. X2 ICE PACKS PLACED ON ABD. NO FURTHER NEEDS NOTED
--- NOTE | 2021-12-16 21:47 | NUR ---
PT CALLED, SBA TO GET UP TO THE BATHROOM, VOIDED, BACK TO BED INDEPENDENTLY. REMOVED EXCESS LINENS. PT DAUGHTER GAVE PT CAN OF VIENA SAUSAGES, PT WAS EATING WHEN THIS RN LEFT ROOM.
--- NOTE | 2021-12-16 22:28 | NUR ---
PATIENT RATES PAIN IN ABD AT 7/10, PRN PAIN MEDICATION GIVEN PER ORDER. FAMILY PRESENT AT BEDSIDE. PATIENT EATING SNACK. NO FURTHER NEEDS NOTES.
--- NOTE | 2021-12-17 00:15 | NUR ---
PATIENT IN BED RESTING WITH EYES CLOSED. CPOX LEVELS WNL. NO FURTHER NEEDS NOTED. CALL LIGHT IN REACH.
--- NOTE | 2021-12-17 00:55 | NUR ---
pt called, sba to bathroom, for unmeasured void, back to bed. Fresh ice water given, threw garbage away. Visited with pt about her family, kids.
--- NOTE | 2021-12-17 01:11 | NUR ---
PATIENT REPORTS 8/10 ABDOMINAL PAIN, PRN PAIN MEDICATION GIVEN ORDERED. SCDS IN PLACE. NO FURTHER NEEDS NOTED. CALL LIGHT WITHIN REACH. FRESH ICE PACKS PLACED ON EFFECTED SIGHT.
--- NOTE | 2021-12-17 03:11 | NUR ---
ASSESSMENT COMPLETED. VITALS TAKEN & RECORDED. ASSISTED PT TO THE RESTROOM BY SBA. PATIENT WAS ABLE TO VOID. I/O'S RECORDED. PATIENT REPORTS EPIGASTRIC PAIN, PROVIDED MILK PER PATIENT'S REQUEST. PATIENT IN BED RESTING. NO FURTHER NEEDS NOTED. SCDS IN PLACE. CALL LIGHT WITHIN REACH.
--- NOTE | 2021-12-17 03:53 | NUR ---
Pt called, iv fluids complete. New bag, pt mostly sleepy.
--- NOTE | 2021-12-17 05:19 | NUR ---
PATIENT REPORTS 6/10 RUQ PAIN, PRN PAIN MEDICATIONS GIVEN PER ORDER, VITALS TAKEN & RECORDED. I/O'S RECORDED. IV FLUSHED & SL. NO FURTHER NEEDS NOTED. CALL LIGHT IN REACH.
--- NOTE | 2021-12-17 07:33 | NUR ---
REPORT RECIEVED FROM SHAY DAVEY AND JESSE GUO. PT RESTING IN BED AT THIS TIME. NO NEEDS IDENTIFIED, CALL LIGHT IN REACH.
--- NOTE | 2021-12-17 08:32 | NUR ---
SCHEDULED MEDICATIONS ADMINISTERED. PRN MOTRIN ADMINISTERED, 6/10 PAIN. PT A+O, AMBULATING TO RESTROOM. ASSESSMENT COMPLETE. HRR, LUNG SOUND COURSE, IV INFUSING WNL. LAP SITES X4 INTACT. PT DENIES TENDERNESS IN ABD. BOWEL TONES ACTIVE. PT TOLERATING REGULAR DIET. CALL LIGHT IN REACH. WILL CONTINUE PLAN OF CARE.
--- NOTE | 2021-12-17 09:09 | NUR ---
PT IS SITTING UP IN BED. I&O AND VS CHARTED CALL LIGHT WITHIN REACH NO FURTHER TASKS AT THIS TIME
--- NOTE | 2021-12-17 09:40 | NUR ---
IN PT ROOM, TO GIVE REQUESTED PRN NORCO. PT STATES 7/10 PAIN AT THIS TIME. PT REQUESTS TO GET UP AND WALK AROUND UNIT, PT UP AND AMBULATING HALLWAY. NO FURTHER NEEDS AT THIS TIME.
--- NOTE | 2021-12-17 10:30 | NUR ---
Spoke with pt, she is anxious to go home as she has not seen her children in a few days. Let her know Dr. Szymanski is in surgery. She denies needs for dc and family will transport her to home.
--- NOTE | 2021-12-17 11:22 | NUR ---
DR UNDERWOOD IN ROOM, DISCUSSES PLAN OF CARE AND EDUCATION FOR DISCHARGE. PT HAS NO QUESTIONS AT THIS TIME.
[2021-12-17] MEDS ORDERED: NICOTINE1 EAC2 TD (11:25)
[2021-12-17] MEDS ORDERED: IBUPROFEN600 MG PO (11:25)
[2021-12-17] MEDS ORDERED: HYDROCODON-ACE1 EA10 PO (11:26)
[2021-12-17] MEDS ORDERED: ACETAMINOPHEN500 MG PO (11:26)
== END 2021-12-17 12:00 | disposition home or self-care (01) | DRG 419 ==
LOC: ED 02:23 → MS 02:24
PROVIDERS: ADMIT Surgery; ATTEND Surgery
PROC: BF121ZZ Fluoroscopy of Gallbladder using Low Osmolar Contrast (ICD-10-PCS; 2021-12-16)
PROC: 0FT44ZZ Resection of Gallbladder, Percutaneous Endoscopic Approach (ICD-10-PCS; principal; 2021-12-16 15:00)
DX: K81.0 Acute cholecystitis (principal); J45.909 Unspecified asthma, uncomplicated; F17.210 Nicotine dependence, cigarettes, uncomplicated; Z87.442 Personal history of urinary calculi; Z88.0 Allergy status to penicillin; Z88.5 Allergy status to narcotic agent
CPT/HCPCS: 36415; 74300; 76705; 78227; 80053; 81001; 83690; 83735; 84703; 85025; 87502; A9270; A9537; J0690; J1100; J1170; J1644; J2001; J2270; J2405; J2704; J2805; J7030; J7121; Q9967; U0003

== ENCOUNTER 2022-03-01 05:45 | Emergency (ER) | payer OTHER ==
[~2022-03-01] VITALS: Ht 160 cm; Wt 87.1 kg
[~2022-03-01 05:45] MED LIST changes: +ACETAMINOPHEN500 MG PO; +HYDROXYZINE HCL25 MG PO; +IBUPROFEN600 MG PO; +NICOTINE1 EAC2 TD
[2022-03-01] MEDS ORDERED: NEURONTIN300 MG PO (05:55)
[2022-03-01] MEDS ORDERED: HYDROCODON-ACE1 EA10 PO (06:22)
== END 2022-03-01 06:30 | disposition home or self-care (01) ==
LOC: ED 05:45
DX: M54.50 Low back pain, unspecified (principal); G89.29 Other chronic pain; J45.909 Unspecified asthma, uncomplicated; F17.200 Nicotine dependence, unspecified, uncomplicated; Z79.899 Other long term (current) drug therapy; Z88.0 Allergy status to penicillin; Z88.6 Allergy status to analgesic agent; Z88.5 Allergy status to narcotic agent
CPT/HCPCS: 99283; A9270

== ENCOUNTER 2022-04-14 07:56 | Emergency (ER) | payer OTHER ==
[~2022-04-14] VITALS: Ht 160 cm; Wt 87.1 kg
[2022-04-14] MEDS ORDERED: KRISTALOSE20 GM PO (10:28)
[2022-04-14] MEDS ORDERED: GAS RELIEF80 MG PO (10:28)
[2022-04-14] MEDS ORDERED: BACTRIM DS TAB1 EACH PO (10:41)
--- NOTE | 2022-04-16 19:30 | EKG ---
[facility] [address] [facility] [place] [address] Signed Normal sinus rhythm Normal ECG No previous ECGs available Confirmed by Aren Navas MD () on 04/16/2022 7:29:44 PM Electronically Signed By: AREN NAVAS MD 04/16/221929 PATIENT NAME: YON WALTON Electrocardiogram DATE OF : [birth year] PHYSICIAN: AREN NAVAS MD REPORT #: [id number] REPORT IS CONFIDENTIAL AND NOT TO BE RELEASED WITHOUT AUTHORIZATION
== END 2022-04-14 10:47 | disposition home or self-care (01) ==
LOC: ED 07:56
DX: K59.00 Constipation, unspecified (principal); N39.0 Urinary tract infection, site not specified; J45.909 Unspecified asthma, uncomplicated; F17.200 Nicotine dependence, unspecified, uncomplicated; Z88.0 Allergy status to penicillin; Z88.5 Allergy status to narcotic agent; Z88.6 Allergy status to analgesic agent; Z79.899 Other long term (current) drug therapy
CPT/HCPCS: 36415; 74022; 80053; 81001; 83690; 85025; 87088; 93005; 93010; 99284-25

== ENCOUNTER 2022-10-27 21:58 | Emergency (ER) | payer OTHER ==
[~2022-10-27] VITALS: Ht 160 cm; Wt 90.3 kg
[~2022-10-27 21:58] MED LIST changes: +BACTRIM DS TAB1 EACH PO; +GAS RELIEF80 MG PO; +KRISTALOSE20 GM PO
[2022-10-27] MEDS ORDERED: TRAMADOL HCL50 MG PO (23:36)
[2022-10-27] MEDS ORDERED: ONDANSETRON ODT8 MG PO (23:36)
[2022-10-27] MEDS ORDERED: SIMETHICONE80 MG PO (23:37)
== END 2022-10-28 00:27 | disposition home or self-care (01) ==
LOC: ED 21:58
DX: K52.9 Noninfective gastroenteritis and colitis, unspecified (principal); J45.909 Unspecified asthma, uncomplicated; F17.200 Nicotine dependence, unspecified, uncomplicated; Z88.5 Allergy status to narcotic agent; Z88.6 Allergy status to analgesic agent; Z88.0 Allergy status to penicillin; Z79.899 Other long term (current) drug therapy
CPT/HCPCS: 36415; 74018; 80053; 81003; 83690; 84703; 85025; 96374; 96375; 99284-25; A9270; J1170; J2405

== ENCOUNTER 2023-04-05 22:53 | Emergency (ER) | payer OTHER ==
[~2023-04-05] VITALS: Ht 162.6 cm; Wt 91.0 kg
[~2023-04-05 22:53] MED LIST changes: +SIMETHICONE80 MG PO
[2023-04-05 23:15] LABS: BILIRUBIN, URINE NEGATIVE (negative); BLOOD/HGB, URINE NEGATIVE (Negative); KETONE, URINE NEGATIVE (Negative); LEUK ESTERASE, URINE NEGATIVE (negative); NITRITE, URINE NEGATIVE (negative); PH, URINE 5.5 (5-7)
[2023-04-05] MEDS ORDERED: PHENTERMINE H37.5 MG PO (23:17)
[2023-04-05 23:22] LABS: BASOPHILS 0.7 % (0-2); EOSINOPHILS 3.1 % (0-6); HEMATOCRIT 42.2 % (35.0-50.0); HEMOGLOBIN 14.4 g/dL (12.0-18.0); LYMPHOCYTES 32.1 % (24-44); MCH 31.4 (27-36); MCV 92.3 fl (81-99); MONOCYTES 5.3 % (0-12); NEUTROPHILS 58.8 % (39-80); PLATELET COUNT 203 K/uL (140-440); RBC 4.58 M/ul (4.3-5.7)
[2023-04-05 23:34] LABS: ALBUMIN 3.8 g/dL (3.4-5.0); ALBUMIN/GLOBULIN RATIO 1.19 (1.1-2.4); ANION GAP 14.7 (7-21); BILIRUBIN, TOTAL 0.2 ng/dL (0.2-1.0); BUN/CREATININE RATIO 16.12 (6.0-28.6); CALCIUM 8.9 mg/dL (8.5-10.1); CREATININE, SERUM 0.93 mg/dL (0.55-1.02); POTASSIUM 3.7 mmol/L (3.5-5.1)
[2023-04-06] MEDS ORDERED: DICYCLOMINE HCL10 MG PO (00:37)
[2023-04-06 01:05] VITALS: BP 112/66
== END 2023-04-06 01:07 | disposition home or self-care (01) ==
LOC: ED 22:53
PROVIDERS: Family Medicine
DX: R10.32 Left lower quadrant pain (principal); R11.2 Nausea with vomiting, unspecified; J45.909 Unspecified asthma, uncomplicated; F17.200 Nicotine dependence, unspecified, uncomplicated; Z88.0 Allergy status to penicillin; Z88.5 Allergy status to narcotic agent; Z79.899 Other long term (current) drug therapy
CPT/HCPCS: 36415; 74177; 80053; 81003; 83690; 85025; A9270; J1170; J2405; J7030; Q9967

== ENCOUNTER 2023-05-30 19:43 | Emergency (ER) | payer OTHER ==
[~2023-05-30] VITALS: Ht 162.6 cm; Wt 92.0 kg
[~2023-05-30 19:43] MED LIST changes: +DICYCLOMINE HCL10 MG PO; +PHENTERMINE H37.5 MG PO
[2023-05-30 21:32] VITALS: BP 124/62
== END 2023-05-30 21:32 | disposition home or self-care (01) ==
LOC: ED 19:43
DX: S63.501A Unspecified sprain of right wrist, initial encounter (principal); W50.0XXA Accidental hit or strike by another person, initial encounter; J45.909 Unspecified asthma, uncomplicated; F17.200 Nicotine dependence, unspecified, uncomplicated; Z88.0 Allergy status to penicillin; Z88.5 Allergy status to narcotic agent; Z88.6 Allergy status to analgesic agent; Z79.899 Other long term (current) drug therapy
CPT/HCPCS: 73110

== ENCOUNTER 2023-12-31 09:56 | Emergency (ER) | payer OTHER ==
[~2023-12-31] VITALS: Ht 165.1 cm; Wt 89.9 kg
[~2023-12-31 09:56] MED LIST changes: +HYDROCODON-ACE1 EA10
[2023-12-31] MEDS ORDERED: PHENTERMINE H37.5 M1 PO (10:11)
[2023-12-31] MEDS ORDERED: OMEPRAZOLE20 MG PO (10:12)
[2023-12-31] MEDS ORDERED: TRAMADOL HCL50 MG PO (10:12)
[2023-12-31 10:33] VITALS: BP 121/75
== END 2023-12-31 10:34 | disposition home or self-care (01) ==
LOC: ED 09:56
DX: G62.9 Polyneuropathy, unspecified (principal); J45.909 Unspecified asthma, uncomplicated; F17.200 Nicotine dependence, unspecified, uncomplicated; Z88.0 Allergy status to penicillin; Z88.6 Allergy status to analgesic agent; Z88.5 Allergy status to narcotic agent; Z79.899 Other long term (current) drug therapy
CPT/HCPCS: 99283

== ENCOUNTER 2024-03-20 09:15 | Emergency (ER) | payer OTHER ==
[~2024-03-20] VITALS: Ht 165.1 cm; Wt 86.5 kg
[~2024-03-20 09:15] MED LIST changes: +PHENTERMINE H37.5 M1 PO
[2024-03-20] MEDS ORDERED: SODIUM CHLORIDE 0.9% 1,000 ML IV ONE (09:45)
[2024-03-20] MEDS ORDERED: HYDROmorphone HCL 1 MG/ML SYR IV ONE (09:45)
[2024-03-20] MEDS ORDERED: ondansetron HCL 4 MG/2 ML VIAL IV ONE ×2 (09:45→11:15)
[2024-03-20 09:49] LABS: BASOPHILS 0.6 % (0-2); EOSINOPHILS 1.8 % (0-6); HEMATOCRIT 46.1 % (35.0-50.0); HEMOGLOBIN 15.6 g/dL (12.0-18.0); LYMPHOCYTES 9.1 % (24-44); MCH 31.2 (27-36); MCHC 33.8 g/dl (30-36); MCV 92.3 fl (81-99); MONOCYTES 3.5 % (0-12); PLATELET COUNT 210 K/uL (140-440); RDW 13.2 (10.5-15.0)
[2024-03-20 10:02] LABS: ALBUMIN 3.9 g/dL (3.4-5.0); ALBUMIN/GLOBULIN RATIO 1.11 (1.1-2.4); BILIRUBIN, TOTAL 0.4 ng/dL (0.2-1.0); BUN/CREATININE RATIO 15.58 (6.0-28.6); CALCIUM 9.2 mg/dL (8.5-10.1); CREATININE, SERUM 0.77 mg/dL (0.55-1.02); PROTEIN, TOTAL 7.4 g/dL (6.4-8.2)
[2024-03-20 10:18] LABS: BILIRUBIN, URINE NEGATIVE (negative); BLOOD/HGB, URINE NEGATIVE (Negative); KETONE, URINE NEGATIVE (Negative); LEUK ESTERASE, URINE NEGATIVE (negative); NITRITE, URINE NEGATIVE (negative); PH, URINE 5.5 (5-7)
[2024-03-20] MEDS ORDERED: LOMOTIL TABLET1 EACH PO (11:10)
[2024-03-20] MEDS ORDERED: ONDANSETRON ODT8 MG SL (11:10)
[2024-03-20 11:55] VITALS: BP 101/68
== END 2024-03-20 11:55 | disposition home or self-care (01) ==
LOC: ED 09:15
PROVIDERS: Emergency Medicine
DX: R11.2 Nausea with vomiting, unspecified (principal); R19.7 Diarrhea, unspecified; N83.202 Unspecified ovarian cyst, left side; J45.909 Unspecified asthma, uncomplicated; K76.9 Liver disease, unspecified; F17.200 Nicotine dependence, unspecified, uncomplicated; Z87.442 Personal history of urinary calculi; Z88.0 Allergy status to penicillin; Z88.5 Allergy status to narcotic agent; Z79.899 Other long term (current) drug therapy; Z90.710 Acquired absence of both cervix and uterus; Z90.721 Acquired absence of ovaries, unilateral; Z90.49 Acquired absence of other specified parts of digestive tract
CPT/HCPCS: 36415; 74176; 80053; 81003; 83690; 85025; 96361; 96374; 96375; 96376; 99284-25; J1170; J2405; J7030

== ENCOUNTER 2024-03-27 11:39 | Emergency (ER) | payer OTHER ==
[~2024-03-27] VITALS: Ht 165.1 cm; Wt 88.8 kg
[~2024-03-27 11:39] MED LIST changes: +LOMOTIL TABLET1 EACH PO; +ONDANSETRON ODT8 MG SL
[2024-03-27 11:55] LABS: BILIRUBIN, URINE NEGATIVE (negative); BLOOD/HGB, URINE NEGATIVE (Negative); KETONE, URINE NEGATIVE (Negative); LEUK ESTERASE, URINE NEGATIVE (negative); NITRITE, URINE NEGATIVE (negative); PH, URINE 7.5 (5-7)
[2024-03-27] MEDS ORDERED: ondansetron HCL 4 MG/2 ML VIAL IV ONE (12:30)
[2024-03-27] MEDS ORDERED: SODIUM CHLORIDE 0.9% 1,000 ML IV ONE (12:30)
[2024-03-27] MEDS ORDERED: HYDROmorphone HCL 1 MG/ML SYR IV ONE ×2 (12:30→13:45)
[2024-03-27 12:41] LABS: ALBUMIN 3.6 g/dL (3.4-5.0); ALBUMIN/GLOBULIN RATIO 1.2 (1.1-2.4); BILIRUBIN, TOTAL 0.3 ng/dL (0.2-1.0); BUN/CREATININE RATIO 10.71 (6.0-28.6); CALCIUM 8.8 mg/dL (8.5-10.1); CREATININE, SERUM 0.84 mg/dL (0.55-1.02); PROTEIN, TOTAL 6.6 g/dL (6.4-8.2)
[2024-03-27] MEDS ORDERED: PERCOCET 5-3251 EACH PO (13:48)
[2024-03-27 15:11] VITALS: BP 106/59
== END 2024-03-27 15:12 | disposition home or self-care (01) ==
LOC: ED 11:39
PROVIDERS: Emergency Medicine
DX: N83.202 Unspecified ovarian cyst, left side (principal); F17.200 Nicotine dependence, unspecified, uncomplicated; Z88.0 Allergy status to penicillin; Z88.5 Allergy status to narcotic agent; Z88.8 Allergy status to other drugs, medicaments and biological substances
CPT/HCPCS: 36415; 74177; 80048; 80053; 81003; 83690; 96361; 96375; 96376; 99284-25; J1170; J2405; J7030; Q9967

== ENCOUNTER 2024-05-01 19:06 | Emergency (ER) | payer OTHER ==
[~2024-05-01] VITALS: Ht 165.1 cm; Wt 89.0 kg
[2024-05-01 19:37] LABS: BILIRUBIN, URINE NEGATIVE (negative); BLOOD/HGB, URINE LARGE (Negative); KETONE, URINE NEGATIVE (Negative); LEUK ESTERASE, URINE NEGATIVE (negative); NITRITE, URINE NEGATIVE (negative); PH, URINE 7.5 (5-7)
[2024-05-01 19:45] LABS: BACTERIA, URINE 1+ /hpf (negative); CASTS, URINE NONE SEEN \\lpf; COLLECTION TYPE, URINE CLEAN CATCH; CRYSTALS, URINE NONE SEEN (0-1+); EPITHELIAL CELLS, URINE SQUAMOUS 4+ /lpf (0-1+); REFLEX CULTURE, URINE No (No)
[2024-05-01] MEDS ORDERED: KETOROLAC TROMETHAMINE 15 MG/ML VIAL IV ONE (19:45)
[2024-05-01] MEDS ORDERED: SODIUM CHLORIDE 0.9% 1,000 ML IV ONE (19:45)
[2024-05-01] MEDS ORDERED: ondansetron HCL 4 MG/2 ML VIAL IV ONE (19:45)
[2024-05-01] MEDS ORDERED: HYDROmorphone HCL 1 MG/ML SYR IV ONE ×2 (19:45→21:15)
[2024-05-01 19:54] LABS: BASOPHILS 0.5 % (0-2); EOSINOPHILS 3.2 % (0-6); HEMATOCRIT 41.4 % (35.0-50.0); HEMOGLOBIN 14.7 g/dL (12.0-18.0); LYMPHOCYTES 42.1 % (24-44); MCH 32.5 (27-36); MCHC 35.6 g/dl (30-36); MCV 91.4 fl (81-99); MONOCYTES 5.5 % (0-12); NEUTROPHILS 48.7 % (39-80); PLATELET COUNT 229 K/uL (140-440); RBC 4.53 M/ul (4.3-5.7); RDW 13.1 (10.5-15.0)
[2024-05-01 20:10] LABS: ALBUMIN/GLOBULIN RATIO 1.21 (1.1-2.4); BILIRUBIN, TOTAL 0.2 ng/dL (0.2-1.0); BUN/CREATININE RATIO 12.5 (6.0-28.6); CALCIUM 9.1 mg/dL (8.5-10.1); CREATININE, SERUM 0.88 mg/dL (0.55-1.02); PROTEIN, TOTAL 7.3 g/dL (6.4-8.2)
[2024-05-01] MEDS ORDERED: HYDROCODON-ACE1 EA10 PO (20:56)
[2024-05-01] MEDS ORDERED: MACROBID 100 M100 MG PO (20:56)
[2024-05-01] MEDS ORDERED: ONDANSETRON 4 MG HOME.PACK SL ONE (21:00)
[2024-05-01] MEDS ORDERED: HYDROCODONE BIT/ACETAMINOPHEN 5/325 MG 1 TAB HOME.PACK PO ONE (21:00)
[2024-05-01] MEDS ORDERED: NITROFURANTOIN MONOHYD MACROCR 100 MG HOME.PACK PO ONE (21:00)
[2024-05-01] MEDS ORDERED: ACETAMINOPHEN 500 MG TAB PO ONE (21:15)
[2024-05-01 22:00] VITALS: BP 115/79
[2024-05-01 23:32] LABS: N. GONORRRHOEAE BY PCR NOT DETECTED (NOT DETECT)
== END 2024-05-01 22:00 | disposition home or self-care (01) ==
LOC: ED 19:06
PROVIDERS: Family Medicine
DX: N39.0 Urinary tract infection, site not specified (principal); N83.292 Other ovarian cyst, left side; J45.909 Unspecified asthma, uncomplicated; F17.200 Nicotine dependence, unspecified, uncomplicated; Z88.0 Allergy status to penicillin; Z88.5 Allergy status to narcotic agent; Z79.899 Other long term (current) drug therapy
CPT/HCPCS: 36415; 74176; 80053; 81001; 83690; 84703; 85025; 96374; 96375; 96376; 99284-25; A9270; J1170; J2405; J7030

== ENCOUNTER 2024-06-01 16:25 | Emergency (ER) | payer OTHER ==
[~2024-06-01] VITALS: Ht 165.1 cm; Wt 90.0 kg
[~2024-06-01 16:25] MED LIST changes: +MACROBID 100 M100 MG PO
[2024-06-01] MEDS ORDERED: HYDROCODON-ACE1 EA10 PO (19:43)
[2024-06-01] MEDS ORDERED: ACETAMINOPHEN 500 MG TAB PO ONE (19:45)
[2024-06-01] MEDS ORDERED: HYDROCODONE BIT/ACETAMINOPHEN 5/325 MG 1 TAB HOME.PACK PO PRN (19:45)
[2024-06-01 19:50] VITALS: BP 108/65
== END 2024-06-01 19:50 | disposition home or self-care (01) ==
LOC: ED 16:25
DX: S83.91XA Sprain of unspecified site of right knee, initial encounter (principal); J45.909 Unspecified asthma, uncomplicated; F17.200 Nicotine dependence, unspecified, uncomplicated; Z88.0 Allergy status to penicillin; Z88.5 Allergy status to narcotic agent; Z79.899 Other long term (current) drug therapy; W22.8XXA Striking against or struck by other objects, initial encounter; X50.1XXA Overexertion from prolonged static or awkward postures, initial encounter
CPT/HCPCS: 73560; 99283; A9270

== ENCOUNTER 2024-06-21 06:30 | Emergency (ER) | payer OTHER ==
[~2024-06-21] VITALS: Ht 165.1 cm; Wt 89.9 kg
[2024-06-21] MEDS ORDERED: TRAMADOL HCL50 MG (06:45)
[2024-06-21] MEDS ORDERED: CELEBREX50 MG (06:46)
[2024-06-21] MEDS ORDERED: MELOXICAM7.5 MG PO (07:04)
[2024-06-21 07:10] VITALS: BP 104/75
[2024-06-21] MEDS ORDERED: CYCLOBENZAPRINE HCL 10 MG HOME.PACK PO ONE (07:15)
== END 2024-06-21 07:10 | disposition home or self-care (01) ==
LOC: ED 06:30
DX: M77.8 Other enthesopathies, not elsewhere classified (principal); F17.200 Nicotine dependence, unspecified, uncomplicated; Z88.0 Allergy status to penicillin; Z88.5 Allergy status to narcotic agent; Z88.8 Allergy status to other drugs, medicaments and biological substances; Z79.899 Other long term (current) drug therapy
CPT/HCPCS: 73030; 99283

== ENCOUNTER 2024-07-24 18:17 | Emergency (ER) | payer OTHER ==
[~2024-07-24] VITALS: Ht 165.1 cm; Wt 92.5 kg
[~2024-07-24 18:17] MED LIST changes: +CELEBREX50 MG; +MELOXICAM7.5 MG PO; +TRAMADOL HCL50 MG
[2024-07-24] MEDS ORDERED: VENTOLIN HFA18 GM INH (18:44)
[2024-07-24] MEDS ORDERED: SODIUM CHLORIDE 0.9% 1,000 ML IV ONE (18:45)
[2024-07-24] MEDS ORDERED: ondansetron HCL 4 MG/2 ML VIAL IV ONE ×2 (18:45→20:00)
[2024-07-24 18:47] LABS: BILIRUBIN, URINE NEGATIVE (negative); BLOOD/HGB, URINE NEGATIVE (Negative); KETONE, URINE NEGATIVE (Negative); LEUK ESTERASE, URINE NEGATIVE (negative); NITRITE, URINE NEGATIVE (negative)
[2024-07-24 18:47] LABS: BASOPHILS 0.8 % (0-2); EOSINOPHILS 3.2 % (0-6); HEMATOCRIT 44.5 % (35.0-50.0); HEMOGLOBIN 15.6 g/dL (12.0-18.0); LYMPHOCYTES 39.1 % (24-44); MCH 32.3 (27-36); MCHC 35.1 g/dl (30-36); MCV 92.1 fl (81-99); MONOCYTES 4.9 % (0-12); PLATELET COUNT 243 K/uL (140-440); RBC 4.83 M/ul (4.3-5.7)
[2024-07-24 19:10] LABS: ALBUMIN/GLOBULIN RATIO 1.08 (1.1-2.4); ANION GAP 14.1 (7-21); BILIRUBIN, TOTAL 0.3 ng/dL (0.2-1.0); BUN/CREATININE RATIO 11.68 (6.0-28.6); CALCIUM 9.6 mg/dL (8.5-10.1); CREATININE, SERUM 0.77 mg/dL (0.55-1.02); POTASSIUM 4.1 mmol/L (3.5-5.1); PROTEIN, TOTAL 7.7 g/dL (6.4-8.2)
[2024-07-24] MEDS ORDERED: hydrOXYzine pamoate 50 MG CAP PO ONE (20:00)
[2024-07-24 20:15] LABS: INFLUENZA B NAA NEGATIVE (NEGATIVE); RESPIRATORY SYNCYTIAL VIR NAA NEGATIVE (NEGATIVE)
[2024-07-24 21:00] VITALS: BP 110/79
== END 2024-07-24 21:00 | disposition left against medical advice (07) ==
LOC: ED 18:17
PROVIDERS: Emergency Medicine; Internal Medicine
DX: R10.11 Right upper quadrant pain (principal); K21.9 Gastro-esophageal reflux disease without esophagitis; J45.909 Unspecified asthma, uncomplicated; F17.200 Nicotine dependence, unspecified, uncomplicated; Z90.49 Acquired absence of other specified parts of digestive tract; Z88.0 Allergy status to penicillin; Z88.5 Allergy status to narcotic agent; Z79.899 Other long term (current) drug therapy; Z53.29 Procedure and treatment not carried out because of patient's decision for other reasons
CPT/HCPCS: 36415; 71045; 80053; 81003; 83690; 84703; 85025; 87502; 96374; 96376; 99284-25; J2405; J7030; U0002

== ENCOUNTER 2024-08-16 21:46 | Emergency (ER) | payer OTHER ==
[~2024-08-16] VITALS: Ht 160 cm; Wt 95.3 kg
[~2024-08-16 21:46] MED LIST changes: +VENTOLIN HFA18 GM INH
[2024-08-16 22:41] LABS: BASOPHILS 0.6 % (0-2); EOSINOPHILS 3.9 % (0-6); HEMATOCRIT 40.7 % (35.0-50.0); HEMOGLOBIN 13.9 g/dL (12.0-18.0); LYMPHOCYTES 37.2 % (24-44); MCH 31.7 (27-36); MCHC 34.1 g/dl (30-36); MCV 92.9 fl (81-99); MONOCYTES 4.7 % (0-12); NEUTROPHILS 53.6 % (39-80); PLATELET COUNT 209 K/uL (140-440); RBC 4.38 M/ul (4.3-5.7); RDW 12.9 (10.5-15.0)
[2024-08-16] MEDS ORDERED: HYDROCODONE/ACETA 5/325 TAB PO ONE (22:45)
[2024-08-16] MEDS ORDERED: ondansetron HCL 4 MG/2 ML VIAL IV ONE (22:45)
[2024-08-16 22:56] LABS: ALBUMIN 3.4 g/dL (3.4-5.0); ALBUMIN/GLOBULIN RATIO 1.03 (1.1-2.4); ANION GAP 14.5 (7-21); BILIRUBIN, TOTAL 0.3 ng/dL (0.2-1.0); BUN/CREATININE RATIO 15.66 (6.0-28.6); CALCIUM 8.6 mg/dL (8.5-10.1); CREATININE, SERUM 0.83 mg/dL (0.55-1.02); POTASSIUM 3.5 mmol/L (3.5-5.1); PROTEIN, TOTAL 6.7 g/dL (6.4-8.2)
[2024-08-16] MEDS ORDERED: NEOMYCIN/POLYMYXIN/HYDROCORT 10 ML HOME.PACK OTIC ONE (23:45)
[2024-08-17 00:32] VITALS: BP 104/58
== END 2024-08-17 00:29 | disposition home or self-care (01) ==
LOC: ED 21:46
PROVIDERS: Family Medicine
DX: H66.92 Otitis media, unspecified, left ear (principal); J45.909 Unspecified asthma, uncomplicated; F17.200 Nicotine dependence, unspecified, uncomplicated; Z88.0 Allergy status to penicillin; Z88.5 Allergy status to narcotic agent; Z88.6 Allergy status to analgesic agent; Z79.899 Other long term (current) drug therapy
CPT/HCPCS: 36415; 70487; 80053; 84703; 85025; 99283-25; J2405; Q9967

== ENCOUNTER 2024-10-29 21:27 | Emergency (ER) | payer OTHER ==
[~2024-10-29] VITALS: Ht 160 cm; Wt 95.2 kg
[2024-10-29] MEDS ORDERED: PHENTERMINE HCL15 MG PO (21:37)
[2024-10-29] MEDS ORDERED: TOPIRAMATE25 MG PO (21:37)
[2024-10-29] MEDS ORDERED: ondansetron HCL 4 MG/2 ML VIAL IV ONE (21:45)
[2024-10-29 21:51] LABS: BASOPHILS 0.6 % (0-2); EOSINOPHILS 2.6 % (0-6); HEMATOCRIT 42.8 % (35.0-50.0); LYMPHOCYTES 34.4 % (24-44); MCV 91.5 fl (81-99); MONOCYTES 4.3 % (0-12); NEUTROPHILS 58.1 % (39-80); PLATELET COUNT 238 K/uL (140-440); RBC 4.68 M/ul (4.3-5.7); RDW 13.1 (10.5-15.0)
[2024-10-29 22:06] LABS: ALBUMIN 3.9 g/dL (3.4-5.0); ALBUMIN/GLOBULIN RATIO 1.18 (1.1-2.4); ANION GAP 16.7 (7-21); BILIRUBIN, TOTAL 0.2 mg/dL (0.2-1.0); BUN/CREATININE RATIO 12.37 (6.0-28.6); CALCIUM 8.8 mg/dL (8.5-10.1); CREATININE, SERUM 0.97 mg/dL (0.55-1.02); MAGNESIUM 2.1 mg/dL (1.8-2.4); POTASSIUM 3.7 mmol/L (3.5-5.1); PROTEIN, TOTAL 7.2 g/dL (6.4-8.2)
[2024-10-29] MEDS ORDERED: fentaNYL citrate 100 MCG/2 ML VIAL IV ONE (22:30)
[2024-10-29] MEDS ORDERED: LACTATED RINGER'S 1,000 ML IV ONE (22:30)
[2024-10-29 22:36] LABS: BILIRUBIN, URINE NEGATIVE (negative); BLOOD/HGB, URINE NEGATIVE (Negative); KETONE, URINE NEGATIVE (Negative); LEUK ESTERASE, URINE NEGATIVE (negative); NITRITE, URINE NEGATIVE (negative); PH, URINE 5.5 (5-7)
[2024-10-29] MEDS ORDERED: IBUPROFEN 800 MG TAB PO ONE (23:30)
[2024-10-30] MEDS ORDERED: ONDANSETRON 4 MG HOME.PACK SL ONE (01:00)
[2024-10-30] MEDS ORDERED: HYDROCODONE BIT/ACETAMINOPHEN 5/325 MG 1 TAB HOME.PACK PO ONE (01:00)
[2024-10-30] MEDS ORDERED: ondansetron HCL 4 MG/2 ML VIAL IV ONE (01:00)
[2024-10-30] MEDS ORDERED: HYDROCODONE/APAP 10/325 1 TAB PO ONE (01:00)
[2024-10-30] MEDS ORDERED: HYDROCODON-ACE1 EA10 PO (01:03)
[2024-10-30] MEDS ORDERED: ONDANSETRON ODT4 MG PO (01:04)
[2024-10-30 01:16] VITALS: BP 126/82
== END 2024-10-30 01:16 | disposition home or self-care (01) ==
LOC: ED 21:27
PROVIDERS: Internal Medicine
DX: R10.2 Pelvic and perineal pain (principal); J45.909 Unspecified asthma, uncomplicated; F17.200 Nicotine dependence, unspecified, uncomplicated; Z88.0 Allergy status to penicillin; Z88.5 Allergy status to narcotic agent; Z88.6 Allergy status to analgesic agent; Z79.899 Other long term (current) drug therapy
CPT/HCPCS: 36415; 74176; 76830; 76856; 80053; 81003; 83690; 83735; 85025; 96361; 96374; 96375; 96376; 99284-25; A9270; J2405; J3010; J7121

== ENCOUNTER 2025-01-10 09:50 | Emergency (ER) | payer OTHER ==
[~2025-01-10] VITALS: Ht 160 cm; Wt 94.3 kg
[~2025-01-10 09:50] MED LIST changes: +PHENTERMINE HCL15 MG PO; +TOPIRAMATE25 MG PO
[2025-01-10] MEDS ORDERED: CYCLOBENZAPRINE10 MG PO (11:12)
[2025-01-10] MEDS ORDERED: NAPROSYN500 MG PO (11:12)
[2025-01-10] MEDS ORDERED: LIDODERM1 EACH TOP (11:12)
[2025-01-10 11:17] VITALS: BP 117/81
== END 2025-01-10 11:17 | disposition home or self-care (01) ==
LOC: ED 09:50
DX: S39.012A Strain of muscle, fascia and tendon of lower back, initial encounter (principal); X58.XXXA Exposure to other specified factors, initial encounter; J45.909 Unspecified asthma, uncomplicated; Z87.440 Personal history of urinary (tract) infections; F17.200 Nicotine dependence, unspecified, uncomplicated; Z90.89 Acquired absence of other organs; Z90.721 Acquired absence of ovaries, unilateral; Z90.711 Acquired absence of uterus with remaining cervical stump; Z88.1 Allergy status to other antibiotic agents; Z88.5 Allergy status to narcotic agent; Z88.8 Allergy status to other drugs, medicaments and biological substances; Z79.899 Other long term (current) drug therapy
CPT/HCPCS: 99283

== ENCOUNTER 2025-01-24 10:53 | Emergency (ER) | payer OTHER ==
[~2025-01-24] VITALS: Ht 160 cm; Wt 95.2 kg
[~2025-01-24 10:53] MED LIST changes: +LIDODERM1 EACH TOP
[2025-01-24] MEDS ORDERED: HYDROCODONE/ACETA 7.5/325 TAB PO ONE ×2 (12:15→14:00)
[2025-01-24] MEDS ORDERED: HYDROCODON-ACE1 EA11 PO (14:02)
[2025-01-24] MEDS ORDERED: METHOCARBAMOL750 MG PO (14:02)
[2025-01-24 14:30] VITALS: BP 103/91
== END 2025-01-24 14:31 | disposition home or self-care (01) ==
LOC: ED 10:53
DX: M54.50 Low back pain, unspecified (principal); J45.909 Unspecified asthma, uncomplicated; Z87.442 Personal history of urinary calculi; F17.200 Nicotine dependence, unspecified, uncomplicated; Z90.89 Acquired absence of other organs; Z90.711 Acquired absence of uterus with remaining cervical stump; Z88.1 Allergy status to other antibiotic agents; Z88.5 Allergy status to narcotic agent
CPT/HCPCS: 72148; 99283-25; A9270

== ENCOUNTER 2025-04-12 23:24 | Emergency (ER) | payer OTHER ==
[~2025-04-12] VITALS: Ht 160 cm; Wt 95.2 kg
[~2025-04-12 23:24] MED LIST changes: +HYDROCODON-ACE1 EA11 PO; +METHOCARBAMOL750 MG PO
[2025-04-12] MEDS ORDERED: CELECOXIB 200 MG CAP PO ONE (23:45)
[2025-04-12] MEDS ORDERED: diazePAM 10 MG/2 ML SYR IM ONE (23:45)
[2025-04-13] MEDS ORDERED: PERCOCET 5-3251 EACH PO (00:27)
[2025-04-13] MEDS ORDERED: methylPREDNISolone 4 MG HOME.PACK PO ONE ×2 (00:30→00:37)
[2025-04-13] MEDS ORDERED: OXYCODONE/ACETAMINOPHEN 1 TAB HOME.PACK PO ONE ×2 (00:30→00:37)
[2025-04-13 00:59] VITALS: BP 132/74
[2025-04-13] MEDS ORDERED: HYDROmorphone HCL 1 MG/ML SYR IM ONE (01:00)
== END 2025-04-13 01:02 | disposition home or self-care (01) ==
LOC: ED 23:24
DX: M51.360 Other intervertebral disc degeneration, lumbar region with discogenic back pain only (principal); F17.200 Nicotine dependence, unspecified, uncomplicated; Z88.0 Allergy status to penicillin; Z88.5 Allergy status to narcotic agent; Z88.6 Allergy status to analgesic agent; Z79.899 Other long term (current) drug therapy
CPT/HCPCS: J3360

== ENCOUNTER 2025-06-15 02:40 | Emergency (ER) | payer OTHER ==
[~2025-06-15] VITALS: Ht 160 cm; Wt 99.7 kg
[2025-06-15 02:58] LABS: BASOPHILS 0.1 % (0.1-1.2); EOSINOPHILS 0 % (0.7-5.8); LYMPHOCYTES 9.5 % (19.3-51.7); MCH 31.5 PG (25.6-32.2); MCHC 35.2 g/dL (32.2-35.5); MCV 89.5 fL (79.4-94.8); MONOCYTES 1.5 % (4.7-12.5); NEUTROPHILS 88.6 % (34.0-71.1); RBC 4.57 M/uL (3.93-5.22)
[2025-06-15] MEDS ORDERED: SODIUM CHLORIDE 0.9% 500 ML IV PRN (03:00)
[2025-06-15] MEDS ORDERED: HYDROmorphone HCL 1 MG/ML SYR IV ONE (03:00)
[2025-06-15 03:17] LABS: ALT (SGPT) 25.0 U/L (14-59); AST (SGOT) 13.0 U/L (15-37); GLOMERULAR FILTRATION RATE,EST 87.0 mL/min (>60); PROTEIN, TOTAL 7.7 g/dL (6.4-8.2); UREA NITROGEN 12.0 mg/dL (7-18)
[2025-06-15] MEDS ORDERED: ONDANSETRON 4 MG HOME.PACK SL ONE (04:15)
[2025-06-15] MEDS ORDERED: OXYCODONE/ACETAMINOPHEN 1 TAB HOME.PACK PO ONE (04:15)
[2025-06-15] MEDS ORDERED: PERCOCET 5-3251 EACH PO (04:18)
[2025-06-15] MEDS ORDERED: PREDNISONE20 MG PO (04:20)
[2025-06-15] MEDS ORDERED: HYDROmorphone HCL 1 MG/ML SYR IV PRN (04:30)
[2025-06-15 05:04] VITALS: BP 120/71
== END 2025-06-15 05:05 | disposition home or self-care (01) ==
LOC: ED 02:40
PROVIDERS: Family Medicine
DX: M54.50 Low back pain, unspecified (principal); J45.909 Unspecified asthma, uncomplicated; Z87.442 Personal history of urinary calculi; F17.200 Nicotine dependence, unspecified, uncomplicated; Z88.5 Allergy status to narcotic agent; Z88.8 Allergy status to other drugs, medicaments and biological substances
CPT/HCPCS: 36415; 72131; 80053; 83605; 84703; 85025; 96374; 96375; 96376; 99284-25; A9270; J1171; J2405; J7040

== ENCOUNTER 2025-06-22 01:50 | Emergency (ER) | payer OTHER ==
[~2025-06-22] VITALS: Ht 160 cm; Wt 99.7 kg
[2025-06-22 02:45] VITALS: BP 137/89
[2025-06-22] MEDS ORDERED: MAGNESIUM CITRATE 300 ML BTL PO ONE (02:45)
== END 2025-06-22 02:47 | disposition home or self-care (01) ==
LOC: ED 01:50
DX: K59.00 Constipation, unspecified (principal); J45.909 Unspecified asthma, uncomplicated; Z87.442 Personal history of urinary calculi; F17.200 Nicotine dependence, unspecified, uncomplicated; Z88.1 Allergy status to other antibiotic agents; Z88.5 Allergy status to narcotic agent; Z79.899 Other long term (current) drug therapy
CPT/HCPCS: 74018; 99283

== ENCOUNTER 2025-06-24 18:28 | Emergency (ER) | payer OTHER ==
[~2025-06-24] VITALS: Ht 160 cm; Wt 99.2 kg
[2025-06-24] MEDS ORDERED: LIDOCAINE 2% VISCOUS 6 ML SYR TOP ONE (21:45)
[2025-06-24] MEDS ORDERED: OXYCODONE/APAP 5/325 TAB PO ONE (21:45)
[2025-06-24 22:32] LABS: BASOPHILS 0.4 % (0.1-1.2); EOSINOPHILS 2.3 % (0.7-5.8); LYMPHOCYTES 38.3 % (19.3-51.7); MCH 31.1 PG (25.6-32.2); MCHC 34.1 g/dL (32.2-35.5); MCV 91.1 fL (79.4-94.8); MONOCYTES 5.2 % (4.7-12.5); NEUTROPHILS 53.5 % (34.0-71.1); RBC 4.28 M/uL (3.93-5.22)
[2025-06-24 22:49] LABS: ALT (SGPT) 70.0 U/L (14-59); AST (SGOT) 21.0 U/L (15-37); GLOMERULAR FILTRATION RATE,EST 104.0 mL/min (>60); PROTEIN, TOTAL 6.9 g/dL (6.4-8.2); UREA NITROGEN 7.0 mg/dL (7-18)
[2025-06-25 00:35] LABS: BLOOD/HGB, URINE NEGATIVE (Negative); KETONE, URINE NEGATIVE (Negative); LEUK ESTERASE, URINE NEGATIVE (negative); NITRITE, URINE NEGATIVE (negative)
[2025-06-25] MEDS ORDERED: HYDROmorphone HCL 1 MG/ML SYR IV ONE (01:00)
[2025-06-25] MEDS ORDERED: DEXAMETHASONE SOD PHOS 10 MG/ML VIAL IV ONE (01:00)
[2025-06-25] MEDS ORDERED: HYDROmorphone HCL 1 MG/ML SYR IV PRN (03:15)
[2025-06-25] MEDS ORDERED: LACTATED RINGER'S 1,000 ML IV SCH (03:30)
[2025-06-25] MEDS ORDERED: FAMOTIDINE 20 MG/ 2 ML VIAL IV ONE (05:30)
[2025-06-25] MEDS ORDERED: OXYCODONE/APAP 5/325 TAB PO ONE (08:30)
[2025-06-25] MEDS ORDERED: PERCOCET 5-3251 EACH PO (09:35)
[2025-06-25] MEDS ORDERED: ONDANSETRON ODT8 MG PO (09:35)
[2025-06-25 09:55] VITALS: BP 98/60
== END 2025-06-25 09:55 | disposition home or self-care (01) ==
LOC: ED 18:28
PROVIDERS: Internal Medicine
DX: M54.16 Radiculopathy, lumbar region (principal); J45.909 Unspecified asthma, uncomplicated; F17.200 Nicotine dependence, unspecified, uncomplicated; Z88.0 Allergy status to penicillin; Z88.5 Allergy status to narcotic agent; Z88.8 Allergy status to other drugs, medicaments and biological substances
CPT/HCPCS: 36415; 51702; 51798; 72148; 80053; 81003; 85025; 86140; 96374; 96375; 96376; 99284-25; A4311; J1100; J1171; J2405; J7121

== ENCOUNTER 2025-07-05 21:45 | Emergency (ER) | payer OTHER ==
[~2025-07-05] VITALS: Ht 160 cm; Wt 99.2 kg
[2025-07-05] MEDS ORDERED: OMEPRAZOLE20 MG (22:24)
[2025-07-05 23:39] LABS: BLOOD/HGB, URINE NEGATIVE (Negative); KETONE, URINE NEGATIVE (Negative); LEUK ESTERASE, URINE NEGATIVE (negative); NITRITE, URINE NEGATIVE (negative)
[2025-07-06 00:45] VITALS: BP 113/66
== END 2025-07-06 00:50 | disposition home or self-care (01) ==
LOC: ED 21:45
PROVIDERS: Emergency Medicine
DX: R33.9 Retention of urine, unspecified (principal); J45.909 Unspecified asthma, uncomplicated; F17.200 Nicotine dependence, unspecified, uncomplicated; Z88.0 Allergy status to penicillin; Z88.5 Allergy status to narcotic agent
CPT/HCPCS: 51702; 51798; 81003; 99283; A4311

== ENCOUNTER 2025-07-08 15:36 | Emergency (ER) | payer OTHER ==
[~2025-07-08] VITALS: Ht 160 cm; Wt 102.0 kg
[~2025-07-08 15:36] MED LIST changes: +OMEPRAZOLE20 MG
[2025-07-08] MEDS ORDERED: OXYCODONE-ACET1 EAC1 PO (16:12)
[2025-07-08] MEDS ORDERED: LIDOCAINE 2% VISCOUS 6 ML SYR TOP ONE (16:30)
[2025-07-08 16:55] VITALS: BP 106/64
== END 2025-07-08 16:55 | disposition home or self-care (01) ==
LOC: ED 15:36
DX: T83.021A Displacement of indwelling urethral catheter, initial encounter (principal); J45.909 Unspecified asthma, uncomplicated; F17.200 Nicotine dependence, unspecified, uncomplicated; Z88.0 Allergy status to penicillin; Z88.5 Allergy status to narcotic agent
CPT/HCPCS: 51702; 99283